=== PATIENT | male | born 1940 | race Caucasian/White ===

== ENCOUNTER 2019-09-17 14:53 | Emergency (ER) | payer MEDICARE, BC ==
--- NOTE | 2019-09-17 15:10 | EDM.PDOC ---
ED HPI GENERAL MEDICAL PROBLEM - General Chief Complaint: Laceration Stated Complaint: LACERATION ON THUMB Time Seen by Provider: 09/17/19 15:02 Source of Information: Reports: Patient - History of Present Illness INITIAL COMMENTS - FREE TEXT/NARRATIVE: Iain is a 78 y/o male who comes to the ER with an injury to his left thumb. He was out in his garage cutting strips of wood and he reports one of the pieces came back out of the saw and hit his left thumb. He is able to move the thumb without any problems. - Related Data Allergies Allergy/AdvReac Type Severity Reaction Status Date / Time No Known Drug Allergies Allergy Other Verified 09/17/19 15:05 benazepril HCl AdvReac Mild Cough Verified 09/17/19 15:05 [From Lotensin] prednisone AdvReac Irritabilit Verified 09/17/19 15:05 y Home Meds: Home Meds Cholecalciferol (Vitamin D3) [Vitamin D3] 1 tab PO DAILY 01/15/14 [History] Cyclobenzaprine [Flexeril] 10 mg PO BEDTIME PRN 01/15/14 [History] Gabapentin [Neurontin] 300 mg PO ASDIRECTED 01/15/14 [History] Hydrocodone/Acetaminophen [Hydrocodon-Acetaminoph 7.5-300] 1 tab PO TID PRN [History] Ipratropium/Albuterol Sulfate [Duoneb 0.5 mg-3 mg/3 ml Soln] 1 ampule INH QID PRN 01/15/14 [History] Morphine Sulfate [Morphine Sulfate ER] 30 mg PO TID 01/15/14 [History] Potassium 99 mg PO DAILY 01/15/14 [History] Venlafaxine HCl [Venlafaxine ER] 150 mg PO DAILY 01/15/14 [History] amLODIPine [Norvasc] 10 mg PO DAILY 01/15/14 [History] traZODone 150 mg PO BEDTIME 01/15/14 [History] Albuterol/Ipratropium [Combivent Respimat] 1 puff IH QID 01/24/16 [History] Fluocinolone/Skin Clnsr28 [Synalar Ts 0.01% Kit] 1 applic TOP ASDIRECTED PRN [History] Fluticasone/Salmeterol [Advair Diskus 250-50] 1 puff INH BID 01/24/16 [History] Hydrocortisone Butyrate/Emoll [Locoid 0.1% Lipocream] 1 applic TOP ASDIRECTED PRN 01/24/16 [History] Lactulose [Cephulac] 30 ml PO BID 01/24/16 [History] Losartan Potassium [Cozaar] 100 mg PO DAILY 01/24/16 [History] Sennosides/Docusate Sodium [Hm Stool Softener-Laxative Tab] 100 mg PO BID [History] Venlafaxine [Effexor XR] 75 mg PO DAILY 01/24/16 [History] Acetaminophen [Tylenol] 650 mg PO Q4H PRN #0 tablet 01/25/16 [Rx] NS + KCl 20mEq/L [Normal Saline with 20 mEq KCl] 1 ml IV ASDIRECTED #0 bag 01/24 [Rx] cefTRIAXone [Rocephin] 1 gm IVPUSH Q24H vial 01/25/16 [Rx] Past Medical History Cardiovascular History: Reports: Aneurysm, High Cholesterol, Hypertension Other Cardiovascular History: aneurysm of thoracic aorta Respiratory History: Reports: Asthma, Bronchitis, Recurrent Other Respiratory History: panlobular emphysema, chronic obstructive lung disease, solitary nodule of lung, pneumonia (unknown if recurrent) Gastrointestinal History: Reports: None Genitourinary History: Reports: None Musculoskeletal History: Reports: Other (See Below) Other Musculoskeletal History: chronic pain Other Neuro History: chronic inflammatory demyelinating polyneuritis, impaired cognition Psychiatric History: Reports: Depression - Past Surgical History Cardiovascular Surgical History: Reports: AAA Repair Social & Family History - Family History Family Medical History: Noncontributory ED ROS GENERAL - Review of Systems Review Of Systems: See Below Constitutional: Reports: No Symptoms HEENT: Reports: No Symptoms Respiratory: Reports: No Symptoms Cardiovascular: Reports: No Symptoms Endocrine: Reports: No Symptoms GI/Abdominal: Reports: No Symptoms : Reports: No Symptoms Musculoskeletal: Reports: No Symptoms Skin: Reports: Other (Laceration to left thumb) ED EXAM, SKIN/RASH Exam: See Below Exam Limited By: No Limitations General Appearance: Alert, WD/WN, No Apparent Distress, Other (Elderly male, NAD.) Ears: Hearing Grossly Normal Nose: Normal Inspection, Normal Mucosa Throat/Mouth: Normal Voice Head: Atraumatic, Normocephalic Neck: Normal Inspection Respiratory/Chest: No Respiratory Distress Cardiovascular: Regular Rate, Rhythm GI/Abdominal: Soft, Non-Tender (Male) Exam: Deferred Rectal (Males) Exam: Deferred Back Exam: Other (Deferred) Extremities: Normal Capillary Refill (Note irregular flap type laceration to left distal thumb on the medial aspect, approximately 1cm/1cm/0.3cm, tissue is quite irregular ; a second avulsion type lacreration about 1cm x 1cm is noted on the doral aspect of hte left thumb along the distal phalynx region), Other Neurological: Alert, Oriented, CN II-XII Intact, Normal Cognition, Normal Gait Psychiatric: Normal Affect, Normal Mood Skin: Warm, Dry, Intact, Normal Color, No Rash Location, Skin: Upper Extremity, Left (See description above) Lymphatic: No Adenopathy ED SKIN PROCEDURES - Laceration/Wound Repair Left Medial Distal Digit - 1st (Thumb) Appearance: Irregular, Mildly Contaminated Distal NVT: Neuro & Vascular Intact, No Tendon Injury Anesthetic Type: Local Local Anesthesia - Lidocaine (Xylocaine): 1% with EPI Local Anesthetic Volume: 5cc Skin Prep: Chlorhexidine (Hibiciens), Providone-Iodine (Betadine), Saline, Sterile Drape Exploration/Debridement/Repair: Wound Explored, Minimal Debridement, Wound Margins Revised, Multiple Flaps Aligned Closed with: Sutures Lac/Wound length In cm: 1 (1cm x 1cm x 0.5cm) Suture Size: 3-0 (Ethilon) # of Sutures: 6 Suture Type: Interrupted Sterile Dressing Applied: Provider Tetanus Status Addressed: Yes Complications: No Progress/Comments: Patient was given wound care instructions. He tolerated the procedure well. Course - Vital Signs Text/Narrative:: The patient was seen by the FLOSSER. Xray was obtained of the left thumb to rule out any fx prior to closure of the laceration. Tetanus date unavailable. Xray was reviewed, no fx noted. The laceration was repaired. See Procedure note. TdaP was given. The patient was given discharge instructions and sent home from the ER in stable condition. Last Recorded V/S: Last Vital Signs Temp 36.8 C 09/17/19 14:55 Pulse 74 09/17/19 14:55 Resp 16 09/17/19 14:55 BP 158/95 H 09/17/19 14:55 Pulse Ox 94 L 09/17/19 14:55 - Orders/Labs/Meds Orders: Active Orders 24 hr Category Date Time Status Vaccines to be Administered [RC] PER UNIT ROUTINE Care 09/17/19 15:15 Active Lidocaine 1% w/EPINEPHrine [Xylocaine 1% with Med 09/17/19 15:23 Active EPINEPHrine 1:100,000] 20 ml INFILT ONETIME PRN Medication Orders Lidocaine/Epinephrine (Xylocaine 1% With Epinephrine 1:100,000) 20 ml INFILT ONETIME PRN PRN Reason: Other Last Admin: 09/17/19 15:28 Dose: 20 ml Meds: Medications Generic Name Dose Route Start Last Admin Trade Name Freq PRN Reason Stop Dose Admin Lidocaine/Epinephrine 20 ml 09/17/19 15:23 09/17/19 15:28 Xylocaine 1% With Epinephrine 1:100,000 INFILT 20 ml ONETIME PRN Administration Other Discontinued Medications Generic Name Dose Route Start Last Admin Trade Name Freq PRN Reason Stop Dose Admin Diphtheria/Tetanus/Acell Pertussis 0.5 ml 09/17/19 15:14 09/17/19 15:25 Adacel IM 09/17/19 15:15 0.5 ml .ONCE ONE Administration Lidocaine/Epinephrine 20 ml 09/17/19 15:18 Xylocaine 2% With Epinephrine 1:100,000 INJECT 09/17/19 15:19 ONETIME ONE - Radiology Interpretation Free Text/Narrative:: XR-Left Thumb=no acute fx noted Departure - Departure Time of Disposition: 15:56 Disposition: Home, Self-Care 01 Condition: Good Clinical Impression: Laceration of thumb, Injury, Tetanus toxoid vaccination administered at current visit - Discharge Information *PRESCRIPTION DRUG MONITORING PROGRAM REVIEWED*: Not Applicable *COPY OF PRESCRIPTION DRUG MONITORING REPORT IN PATIENT KI: Not Applicable Instructions: VIS, Tetanus, Diphtheria (Td); Tetanus, Diphtheria, Pertussis ( Tdap) - CDC, Sutures, Florecita, or Adhesive Wound Closure, [id number] Referrals: Jaylen Hood MD [Primary Care Provider] - Forms: ED Department Discharge Additional Instructions: -Use ibuprofen or acetaminophen as needed for pain (Over the counter meds) -Keep the dressing that was placed in the ER on for 24 hours, then remove the dressing and wash the laceration region with soap and water. Dry the area well and apply a small amount of antibiotic ointment and a bandaid or light dressing. Use the antibiotic ointment for the next 2-3 days, then just cleanse the wound with soap and water and you may begin leaving it open to the air and only place a light band when working outside or needing protection to the area. -Return to your PCP Clinic in 8-10 days for suture removal -Watch for signs of infection such as fever, redness, or drainage and report to your PCP if any of these symptoms occur. -Your tetanus immunization was updated at today's ER visit. Sepsis Event Note - Evaluation Sepsis Screening Result: No Definite Risk - Focused Exam Vital Signs: Vital Signs Temp Pulse Resp BP Pulse Ox 09/17/19 14:55 36.8 C 74 16 158/95 H 94 L Date Exam was Performed: 09/17/19 Time Exam was Performed: 15:56 - My Orders Last 24 Hours: My Active Orders 09/17/19 15:15 Vaccines to be Administered [RC] PER UNIT ROUTINE 09/17/19 15:23 Lidocaine 1% w/EPINEPHrine [Xylocaine 1% with EPINEPHrine 1:100,000] 20 ml INFILT ONETIME PRN - Assessment/Plan Last 24 Hours: My Active Orders 09/17/19 15:15 Vaccines to be Administered [RC] PER UNIT ROUTINE 09/17/19 15:23 Lidocaine 1% w/EPINEPHrine [Xylocaine 1% with EPINEPHrine 1:100,000] 20 ml INFILT ONETIME PRN
[2019-09-17] MEDS ORDERED: Diphtheria,Pertussis(Acell),Tetanus Vaccine 0.5 ML Syringe IM ONE (15:14)
[2019-09-17 15:15] VITALS: BP 158/95; PULSE 74
[2019-09-17] MEDS ORDERED: Lidocaine 2% with EPINEPHrine 1:100,000 20 ML MDV INJECT ONE (15:18)
[2019-09-17] MEDS ORDERED: Lidocaine 1% with EPINEPHrine 1:100,000 20 ML MDV INFILT PRN (15:23)
--- NOTE | 2019-09-17 15:46 | CR ---
[id number] RAD/RAD Fingers Left EXAM: RAD Fingers Left CLINICAL DATA: LACERATION COMPARISON: NO PREVIOUS SIMILAR EXAM IS AVAILABLE. FINDINGS: No fracture or dislocation is seen There are tiny radiopaque foreign bodies in the soft tissues of the thenar eminence There are degenerative changes of the left wrist. IMPRESSION: NO FRACTURE OR DISLOCATION TINY RADIOPAQUE FOREIGN BODIES IN THE SOFT TISSUES OF THE THENAR REGION Zak Talbot MD 09/17/19 2022 Thank you for allowing us to participate in the care of your patient.
== END 2019-09-17 15:57 | disposition home or self-care (01) ==
LOC: VM.ED 14:53
DX: S61.012A Laceration without foreign body of left thumb without damage to nail, initial encounter (principal); Z23 Encounter for immunization; W27.0XXA Contact with workbench tool, initial encounter; Z88.0 Allergy status to penicillin
CPT/HCPCS: 12001; 73140-FA; 90471; 90715; 99283-25; 99283-GF

== ENCOUNTER 2020-09-04 08:18 | Day surgery (SDC) | payer MEDICARE, BC ==
[~2020-09-04 08:18] MED LIST: Lactated Ringers 1,000 ML IV SCH
[2020-09-04] MEDS ORDERED: Propofol 200 MG/20 ML SDV ONE ×5 (09:44→12:10)
[2020-09-04] MEDS ORDERED: Lactated Ringers 1,000 ML ONE (11:22)
[2020-09-04 12:05] VITALS: BP 175/85; PULSE 60
--- NOTE | 2020-09-05 09:39 | OR ---
DATE OF SURGERY: 09/04/2020 REFERRING PROVIDER: Carol Persaud MD PRE-OPERATIVE DIAGNOSES: 1. Positive FIT stool card. 2. History of diverticulosis. The patient states his bowel movements alternate between constipation and diarrhea chronically. POST-OPERATIVE DIAGNOSES: 1. Mild right-sided colitis with superficial ulcerations. Cold biopsy x4 bites taken. This was limited to the right colon. 2. 8 mm pedunculated polyp at 120 cm, removed using hot snare. 3. Long tortuous colon. 4. Moderate diverticulosis. PROCEDURE: Colonoscopy with polypectomy x1 using hot snare. Cold biopsy x1 site (the right colon). SURGEON: Keshav Martin M.D. ANESTHESIA: Monitored anesthesia care. BOWEL PREP: Poor. Did require significant amount of irrigation and suctioning and visualization was affected. Iain is an 79-year-old male, who was brought to the endoscopy suite after discussing risks and benefits of the procedure. Informed consent was obtained for conscious sedation and colonoscopy with or without biopsy and/or polypectomy. We also discussed possibility of missed lesions. Pre-procedure exam was unremarkable. IV, oxygen, and monitors were placed. The patient was placed in the left lateral decubitus position. Sedation was administered and a digital rectal exam was performed and unremarkable. Colonoscope was passed into the rectum and slowly advanced all the way to the cecum. The patient did have a long tortuous colon and required abdominal pressure and multiple scope maneuvers to obtain cecal intubation. Cecum was viewed and photographed. The colonoscope was slowly withdrawn and the mucosa was closed observed in a direct circumferential manner. The ascending colon was remarkable for some right-sided colitis with some superficial linear ulcerations. Cold biopsy x4 bites taken. There was an 8 mm pedunculated polyp at 120 cm, removed using hot snare. The transverse colon was unremarkable. The descending and sigmoid colon did reveal moderate diverticulosis. Retroflexion was performed and rectal mucosa was unremarkable. Scope was removed. The patient tolerated the procedure well. The patient was monitored until that baseline status. Discharge instructions were reviewed and the patient was discharged in good condition. COMPLICATIONS: None. TOTAL TIME: 67 minutes. ESTIMATED BLOOD LOSS: About 1 mL. RECOMMENDATIONS/FOLLOW-UP: We will await results of path report to determine ideal followup interval. I would like to kindly thank Dr. Persaud for this referral. DMB: 09/04/2020 15:18:42 MODL: 09/04/2020 21:56:59 /[id number]
== END 2020-09-04 12:30 | disposition home or self-care (01) ==
LOC: VM.SDS 08:18
PROVIDERS: ATTEND Family Medicine
DX: D12.6 Benign neoplasm of colon, unspecified (principal); K51.80 Other ulcerative colitis without complications; K57.30 Diverticulosis of large intestine without perforation or abscess without bleeding; K63.89 Other specified diseases of intestine; Z01.812 Encounter for preprocedural laboratory examination; Z20.822 Contact with and (suspected) exposure to COVID-19; E78.00 Pure hypercholesterolemia, unspecified; I12.9 Hypertensive chronic kidney disease with stage 1 through stage 4 chronic kidney disease, or unspecified chronic kidney disease; N18.31 Chronic kidney disease, stage 3a; I71.4 Abdominal aortic aneurysm, without rupture; G47.33 Obstructive sleep apnea (adult) (pediatric); J43.1 Panlobular emphysema; F33.0 Major depressive disorder, recurrent, mild; G61.81 Chronic inflammatory demyelinating polyneuritis; M25.561 Pain in right knee; E66.9 Obesity, unspecified; Z68.30 Body mass index [BMI] 30.0-30.9, adult; G89.29 Other chronic pain; Z79.899 Other long term (current) drug therapy; Z88.8 Allergy status to other drugs, medicaments and biological substances; Z87.891 Personal history of nicotine dependence; Z98.890 Other specified postprocedural states
CPT/HCPCS: 00812; 88305; J2704; J7120; U0002

== ENCOUNTER 2022-01-06 15:08 | Inpatient (IN) | payer MEDICARE, BC ==
[2022-01-06] MEDS ORDERED: Sodium Chloride 0.9% 10 ML Syringe FLUSH PRN (16:01)
[2022-01-06] MEDS ORDERED: Ondansetron 4 MG Tab.DIS PO PRN (16:01)
[2022-01-06] MEDS ORDERED: Sodium Chloride 0.9% 1,000 ML IV SCH (16:15)
[2022-01-06] MEDS ORDERED: Nitroglycerin 0.4 MG Tab.SL SL PRN (16:41)
[2022-01-06] MEDS ORDERED: Albuterol/Ipratropium 3.0-0.5 MG/3 ML Neb Soln NEB PRN (16:41)
[2022-01-06] MEDS ORDERED: Albuterol HFA 18 Gm Inhaler INH PRN (16:41)
[2022-01-06] MEDS: Acetaminophen 325 MG Tab PO PRN (17:54)
[2022-01-06] MEDS: cefTRIAXone 2 GM Vial IVPUSH SCH (17:54)
[2022-01-06] MEDS ORDERED: Acetaminophen/HYDROcodone 325-5 MG Tab PO PRN (18:00)
[2022-01-06] MEDS: tiZANidine 4 MG Tab PO SCH ×2 (18:05→20:08)
[2022-01-06] MEDS: Albuterol/Ipratropium 3.0-0.5 MG/3 ML Neb Soln INH SCH (19:57)
[2022-01-06] MEDS: Sodium Chloride 0.9% 1,000 ML IV SCH (19:58)
[2022-01-06] MEDS: Lactulose Soln 10 GM/15 ML 30 ML UD Cup PO SCH (20:08)
[2022-01-06] MEDS: Docusate Sodium 100 MG Cap PO SCH (20:08)
[2022-01-06] MEDS: traZODone 50 MG Tab PO SCH (20:09)
[2022-01-06] MEDS: Gabapentin 300 MG Cap PO SCH (20:09)
[2022-01-06] MEDS: Apixaban 2.5 MG Tab PO SCH (20:10)
[2022-01-06] MEDS: Remove Patch- LIDOCAINE PATCH TRDERM SCH (20:11)
[2022-01-07] MEDS: Albuterol/Ipratropium 3.0-0.5 MG/3 ML Neb Soln INH SCH ×4 (01:10→18:13)
[2022-01-07] MEDS: Sodium Chloride 0.9% 1,000 ML IV SCH ×3 (02:57→17:32)
[2022-01-07 07:46] LABS: ANION GAP 13.3 mmol/L (5-15)
[2022-01-07] MEDS ORDERED: Non-Formulary Medication 1 Each (Potassium Gluconate [Potassium Gluconate] 99 MG Tablet) PO SCH (09:00)
[2022-01-07] MEDS: Lactulose Soln 10 GM/15 ML 30 ML UD Cup PO SCH ×2 (09:10→19:59)
[2022-01-07] MEDS: Venlafaxine 75 MG Cap.ER PO SCH (09:11)
[2022-01-07] MEDS: Gabapentin 300 MG Cap PO SCH ×3 (09:11→20:00)
[2022-01-07] MEDS: Tamsulosin 0.4 MG Cap.ER PO SCH (09:12)
[2022-01-07] MEDS: Docusate Sodium 100 MG Cap PO SCH ×2 (09:12→19:59)
[2022-01-07] MEDS: Aspirin 81 MG Tab.EC PO SCH (09:13)
[2022-01-07] MEDS: Cholecalciferol (Vitamin D3) 25 MCG Tab PO SCH (09:13)
[2022-01-07] MEDS: Apixaban 2.5 MG Tab PO SCH ×2 (09:15→20:00)
[2022-01-07] MEDS: Venlafaxine 150 MG Cap.ER PO SCH (09:15)
[2022-01-07] MEDS: amLODIPine 5 MG Tab PO SCH (09:20)
[2022-01-07] MEDS: cefTRIAXone 2 GM Vial IVPUSH SCH (09:26)
[2022-01-07] MEDS: Metoprolol Succinate 25 MG Tab.ER PO SCH (09:27)
[2022-01-07] MEDS: Lidocaine 4% 1 each Patch TOP SCH (12:47)
[2022-01-07] MEDS: Acetaminophen 325 MG Tab PO PRN (17:33)
[2022-01-07] MEDS: tiZANidine 4 MG Tab PO SCH ×2 (17:33→20:00)
[2022-01-07] MEDS: traZODone 50 MG Tab PO SCH (19:59)
[2022-01-07] MEDS: Remove Patch- LIDOCAINE PATCH TRDERM SCH (20:00)
[2022-01-08] MEDS: Albuterol/Ipratropium 3.0-0.5 MG/3 ML Neb Soln INH SCH ×4 (01:32→18:30)
[2022-01-08] MEDS: Sodium Chloride 0.9% 1,000 ML IV SCH (01:33)
[2022-01-08 07:35] LABS: ANION GAP 14.6 mmol/L (5-15)
[2022-01-08] MEDS: Lidocaine 4% 1 each Patch TOP SCH (09:32)
[2022-01-08] MEDS: Venlafaxine 75 MG Cap.ER PO SCH (09:34)
[2022-01-08] MEDS: Docusate Sodium 100 MG Cap PO SCH ×2 (09:34→20:29)
[2022-01-08] MEDS: Aspirin 81 MG Tab.EC PO SCH (09:34)
[2022-01-08] MEDS: Gabapentin 300 MG Cap PO SCH ×3 (09:34→20:28)
[2022-01-08] MEDS: Metoprolol Succinate 25 MG Tab.ER PO SCH (09:34)
[2022-01-08] MEDS: Venlafaxine 150 MG Cap.ER PO SCH (09:35)
[2022-01-08] MEDS: amLODIPine 5 MG Tab PO SCH (09:35)
[2022-01-08] MEDS: Tamsulosin 0.4 MG Cap.ER PO SCH (09:35)
[2022-01-08] MEDS: Cholecalciferol (Vitamin D3) 25 MCG Tab PO SCH (09:35)
[2022-01-08] MEDS: Apixaban 2.5 MG Tab PO SCH ×2 (09:36→20:29)
[2022-01-08] MEDS: Lactulose Soln 10 GM/15 ML 30 ML UD Cup PO SCH ×2 (09:36→20:28)
[2022-01-08] MEDS: cefTRIAXone 2 GM Vial IVPUSH SCH (09:40)
[2022-01-08] MEDS: Losartan 50 MG Tab PO SCH (09:40)
[2022-01-08] MEDS: Acetaminophen 325 MG Tab PO PRN (14:20)
[2022-01-08] MEDS ORDERED: Labetalol 20 MG/4 ML Syringe IVPUSH ONE ×3 (14:45→17:04)
[2022-01-08] MEDS ORDERED: Furosemide 20 MG Tab PO ONE (17:00)
[2022-01-08] MEDS: tiZANidine 4 MG Tab PO SCH ×2 (18:26→20:29)
[2022-01-08] MEDS ORDERED: Morphine 15 MG Tab.ER PO SCH (18:45)
[2022-01-08] MEDS: Morphine 15 MG Tab.ER PO SCH ×2 (19:03→20:28)
[2022-01-08] MEDS: traZODone 50 MG Tab PO SCH (20:29)
[2022-01-08] MEDS: Remove Patch- LIDOCAINE PATCH TRDERM SCH (20:30)
[2022-01-09] MEDS: Albuterol/Ipratropium 3.0-0.5 MG/3 ML Neb Soln INH SCH ×2 (00:07→08:12)
[2022-01-09] MEDS: Lidocaine 4% 1 each Patch TOP SCH (08:12)
[2022-01-09] MEDS: Aspirin 81 MG Tab.EC PO SCH (08:13)
[2022-01-09] MEDS: Tamsulosin 0.4 MG Cap.ER PO SCH (08:13)
[2022-01-09] MEDS: Docusate Sodium 100 MG Cap PO SCH (08:13)
[2022-01-09] MEDS: Losartan 50 MG Tab PO SCH (08:13)
[2022-01-09] MEDS: amLODIPine 5 MG Tab PO SCH (08:13)
[2022-01-09] MEDS: Cholecalciferol (Vitamin D3) 25 MCG Tab PO SCH (08:13)
[2022-01-09] MEDS: Gabapentin 300 MG Cap PO SCH ×2 (08:14→13:08)
[2022-01-09] MEDS: Metoprolol Succinate 25 MG Tab.ER PO SCH (08:14)
[2022-01-09] MEDS: Morphine 15 MG Tab.ER PO SCH (08:15)
[2022-01-09] MEDS: Venlafaxine 75 MG Cap.ER PO SCH (08:15)
[2022-01-09] MEDS: Apixaban 2.5 MG Tab PO SCH (08:15)
[2022-01-09] MEDS: Venlafaxine 150 MG Cap.ER PO SCH (08:15)
[2022-01-09] MEDS: Lactulose Soln 10 GM/15 ML 30 ML UD Cup PO SCH (08:16)
[2022-01-09 09:34] LABS: ANION GAP 14.8 mmol/L (5-15)
[2022-01-09 10:18] VITALS: BP 158/88; PULSE 80
[2022-01-09] MEDS: cefTRIAXone 2 GM Vial IVPUSH SCH (10:32)
== END 2022-01-09 11:40 | disposition home or self-care (01) | DRG 683 ==
LOC: VM.MS 15:21
PROVIDERS: ADMIT Family Medicine; ATTEND Family Medicine
DX: N17.9 Acute kidney failure, unspecified (principal); N39.0 Urinary tract infection, site not specified; R33.9 Retention of urine, unspecified; R97.20 Elevated prostate specific antigen [PSA]; B96.20 Unspecified Escherichia coli [E. coli] as the cause of diseases classified elsewhere; B96.1 Klebsiella pneumoniae [K. pneumoniae] as the cause of diseases classified elsewhere; I12.9 Hypertensive chronic kidney disease with stage 1 through stage 4 chronic kidney disease, or unspecified chronic kidney disease; N18.31 Chronic kidney disease, stage 3a; Z66 Do not resuscitate; I73.9 Peripheral vascular disease, unspecified; I48.91 Unspecified atrial fibrillation; I25.10 Atherosclerotic heart disease of native coronary artery without angina pectoris; J43.9 Emphysema, unspecified; G47.33 Obstructive sleep apnea (adult) (pediatric); E78.5 Hyperlipidemia, unspecified; F32.A Depression, unspecified; E66.9 Obesity, unspecified; K59.09 Other constipation; G89.29 Other chronic pain; Z68.30 Body mass index [BMI] 30.0-30.9, adult; Z79.899 Other long term (current) drug therapy; Z79.01 Long term (current) use of anticoagulants; Z79.82 Long term (current) use of aspirin; Z79.52 Long term (current) use of systemic steroids; Z79.1 Long term (current) use of non-steroidal anti-inflammatories (NSAID); Z88.8 Allergy status to other drugs, medicaments and biological substances; Z87.01 Personal history of pneumonia (recurrent); Z87.19 Personal history of other diseases of the digestive system; Z98.42 Cataract extraction status, left eye; Z98.41 Cataract extraction status, right eye; Z98.890 Other specified postprocedural states; Z90.89 Acquired absence of other organs; Z98.52 Vasectomy status; Z87.891 Personal history of nicotine dependence
CPT/HCPCS: 36415; 51702; 80048; 80053; 85025; 94640; 94760; 97110-GP; 97116-GP; 97162-GP; A9270-GY; J0696; J3490; J7030; J7620-GY

== ENCOUNTER 2022-10-11 10:10 | Inpatient (IN) | payer MEDICARE, BC ==
[2022-10-11] MEDS ORDERED: Sodium Chloride 0.9% 1,000 ML IV ONE (10:19)
[2022-10-11] MEDS ORDERED: Sodium Chloride 0.9% 10 ML Syringe FLUSH PRN (10:19)
[2022-10-11] MEDS ORDERED: cefTRIAXone 1 GM in Sodium Chloride 0.9% 100 ML IV ONE (10:19)
[2022-10-11] MEDS ORDERED: Acetaminophen 325 MG Tab PO ONE (10:32)
[2022-10-11 10:53] LABS: BASOPHILS PERCENT AUTO 0.1 % (0.2-1.2); EOSINOPHILS ABSOLUTE AUTO 0.4 x10^3/uL (0.0-0.5); EOSINOPHILS PERCENT AUTO 2.9 % (0.0-4.0); HEMATOCRIT 34.5 % (40.0-52.0); HEMOGLOBIN 11.4 g/dL (14.0-18.0); IMMATURE GRAN ABSOLUTE AUTO 0.05 x10^3/uL (0.00-0.07); LYMPHOCYTES ABSOLUTE AUTO 1.2 x10^3/uL (1.0-4.8); LYMPHOCYTES PERCENT AUTO 7.8 % (25.0-50.0); MEAN CORPUSCULAR HEMOGLOBIN 30.4 pg (26.0-32.0); MONOCYTES PERCENT AUTO 6.5 % (2.0-11.0); NEUTROPHILS ABSOLUTE AUTO 12.1 x10^3/uL (1.8-7.7); NEUTROPHILS PERCENT AUTO 82.4 % (50.0-80.0); PLATELET COUNT,PLT 164 x10^3/uL (130-400); RED BLOOD CELL COUNT 3.75 x10^6/uL (4.5-6.0); WHITE BLOOD CELL COUNT,WBC 14.7 x10^3/uL (4.0-10.0)
[2022-10-11] MEDS ORDERED: cefTRIAXone 1 GM Vial IVPUSH ONE (10:56)
[2022-10-11 11:17] LABS: LACTIC ACID 0.7 mmol/L (0.4-2.0)
[2022-10-11 11:27] LABS: A/G RATIO 0.73; ALANINE AMINOTRANSFERASE,ALT 16 U/L (16-63); ALBUMIN 2.9 g/dL (3.4-5.0); ALKALINE PHOSPHATASE 144 U/L (46-116); ASPARTATE AMNIOTRANSFERASE,AST 11 U/L (15-37); BILIRUBIN TOTAL 0.6 mg/dL (0.2-1.0); BLOOD UREA NITROGEN,BUN 35 mg/dL (7-18); C-REACTIVE PROTEIN 7.9 mg/dL (<=0.9); CALCIUM 8.4 mg/dL (8.5-10.1); CARBON DIOXIDE,CO2 28 mmol/L (21-32); CHLORIDE,CL 105 mmol/L (98-107); GLUCOSE RANDOM 115 mg/dL (70-99); PROTEIN TOTAL,TP 6.9 g/dL (6.4-8.2); SODIUM,NA 142 mmol/L (136-145)
[2022-10-11 11:28] LABS: ESTIMATED GFR 33 mL/min (>=60)
[2022-10-11 11:29] LABS: BILIRUBIN,URINE NEGATIVE (NEGATIVE); COLOR,URINE YELLOW (YELLOW); GLUCOSE,URINE NEGATIVE (NEGATIVE); KETONES,URINE NEGATIVE (NEGATIVE); LEUKOCYTE ESTERASE,URINE MODERATE (NEGATIVE); NITRITE,URINE POSITIVE (NEGATIVE); OCCULT BLOOD,URINE TRACE-INTACT (NEGATIVE); PH,URINE 6.5 (5.0-8.0); PROTEIN,URINE 30 mg/dL (NEGATIVE); UROBILINOGEN,URINE 0.2 EU/dL (0.2)
[2022-10-11 11:33] LABS: CORONAVIRUS COVID-19 NAA NEGATIVE (NEGATIVE); INFLUENZA A NAA NEGATIVE (NEGATIVE); INFLUENZA B NAA NEGATIVE (NEGATIVE); RESPIRATORY SYNCYTIAL VIR NAA NEGATIVE (NEGATIVE)
[2022-10-11 11:37] LABS: APPEARANCE,URINE CLOUDY (CLEAR)
[2022-10-11 11:38] LABS: BACTERIA,URINE MODERATE /HPF (NOT SEEN); MUCUS,URINE RARE /LPF (NOT SEEN); WBC,URINE 40-50 /HPF (NOT SEEN)
[2022-10-11] MEDS ORDERED: Acetaminophen 325 MG Tab PO PRN (12:23)
[2022-10-11] MEDS ORDERED: Acetaminophen 500 MG Tab PO PRN (12:45)
[2022-10-11] MEDS ORDERED: hydrOXYzine HCl 25 MG Tab PO PRN (12:45)
[2022-10-11] MEDS ORDERED: Albuterol/Ipratropium 3.0-0.5 MG/3 ML Neb Soln NEB PRN (12:45)
[2022-10-11] MEDS ORDERED: Albuterol HFA 18 Gm Inhaler INH PRN (12:45)
[2022-10-11] MEDS ORDERED: Hydrocortisone 1% Crm 30 GM Tube TOP PRN (13:59)
[2022-10-11] MEDS: Mupirocin Oint 22 GM Tube TOP SCH ×2 (14:21→20:17)
[2022-10-11] MEDS: Morphine 15 MG Tab.ER PO SCH ×2 (14:21→20:23)
[2022-10-11] MEDS: Albuterol/Ipratropium 3.0-0.5 MG/3 ML Neb Soln NEB SCH ×2 (15:16→20:23)
[2022-10-11] MEDS: Sodium Chloride 0.9% 1,000 ML IV SCH (16:20)
[2022-10-11] MEDS ORDERED: VANCOmycin 2 GM/400 ML 2 GM in Premix Bag 1 BAG IV SCH (17:30)
[2022-10-11] MEDS ORDERED: Acetaminophen/HYDROcodone 325-5 MG Tab PO PRN (18:00)
[2022-10-11] MEDS: tiZANidine 4 MG Tab PO SCH ×2 (18:43→20:24)
[2022-10-11] MEDS: Carvedilol 6.25 MG Tab PO SCH (18:43)
[2022-10-11] MEDS: Piperacillin/Tazobactam 3.375 GM in Sodium Chloride 0.9% 100 ML IV SCH (18:44)
[2022-10-11] MEDS: Lactulose Soln 10 GM/15 ML 30 ML UD Cup PO SCH (20:23)
[2022-10-11] MEDS: Docusate Sodium 100 MG Cap PO SCH (20:23)
[2022-10-11] MEDS: Gabapentin 300 MG Cap PO SCH (20:24)
[2022-10-11] MEDS: Apixaban 2.5 MG Tab PO SCH (20:24)
[2022-10-11] MEDS: MICONAZOLE 2% TOP SCH (20:24)
[2022-10-12] MEDS: Sodium Chloride 0.9% 1,000 ML IV SCH ×2 (01:46→17:17)
[2022-10-12] MEDS: Piperacillin/Tazobactam 3.375 GM in Sodium Chloride 0.9% 100 ML IV SCH ×2 (01:46→09:27)
[2022-10-12 07:00] LABS: BASOPHILS PERCENT AUTO 0.2 % (0.2-1.2); EOSINOPHILS ABSOLUTE AUTO 0.6 x10^3/uL (0.0-0.5); EOSINOPHILS PERCENT AUTO 4.3 % (0.0-4.0); HEMATOCRIT 31.5 % (40.0-52.0); HEMOGLOBIN 10.2 g/dL (14.0-18.0); IMMATURE GRAN ABSOLUTE AUTO 0.05 x10^3/uL (0.00-0.07); LYMPHOCYTES ABSOLUTE AUTO 1.5 x10^3/uL (1.0-4.8); LYMPHOCYTES PERCENT AUTO 10.8 % (25.0-50.0); MEAN CORPUSCULAR HEMOGLOBIN 30.4 pg (26.0-32.0); MEAN CORPUSCULAR HGB CONC 32.4 g/dL (32.0-36.0); MEAN CORPUSCULAR VOLUME 93.8 fL (78.0-93.0); MONOCYTES ABSOLUTE AUTO 0.9 x10^3/uL (0.0-0.8); MONOCYTES PERCENT AUTO 6.4 % (2.0-11.0); NEUTROPHILS ABSOLUTE AUTO 11.1 x10^3/uL (1.8-7.7); NEUTROPHILS PERCENT AUTO 77.9 % (50.0-80.0); PLATELET COUNT,PLT 143 x10^3/uL (130-400); RED BLOOD CELL COUNT 3.36 x10^6/uL (4.5-6.0); WHITE BLOOD CELL COUNT,WBC 14.2 x10^3/uL (4.0-10.0)
[2022-10-12] MEDS: Albuterol/Ipratropium 3.0-0.5 MG/3 ML Neb Soln NEB SCH ×4 (07:12→20:07)
[2022-10-12 07:18] LABS: A/G RATIO 0.6; ALBUMIN 2.4 g/dL (3.4-5.0); CALCIUM 8.3 mg/dL (8.5-10.1); CREATININE 2.2 mg/dL (0.70-1.30); EST CRCL DRUG DOSING (CG) 27.57 mL/min; POTASSIUM,K 4.2 mmol/L (3.5-5.1); PROTEIN TOTAL,TP 6.4 g/dL (6.4-8.2)
[2022-10-12 07:21] LABS: ANION GAP 14.2 mmol/L (5-15)
[2022-10-12] MEDS: POTASSIUM GLUCONATE PO SCH (08:58)
[2022-10-12] MEDS: Carvedilol 6.25 MG Tab PO SCH ×2 (08:59→17:25)
[2022-10-12] MEDS: Mupirocin Oint 22 GM Tube TOP SCH ×3 (08:59→20:07)
[2022-10-12] MEDS: Docusate Sodium 100 MG Cap PO SCH ×2 (09:00→20:07)
[2022-10-12] MEDS: amLODIPine 5 MG Tab PO SCH (09:00)
[2022-10-12] MEDS: Aspirin 81 MG Tab.EC PO SCH (09:00)
[2022-10-12] MEDS ORDERED: cefTRIAXone 1 GM Vial IVPUSH SCH (09:00)
[2022-10-12] MEDS: Gabapentin 300 MG Cap PO SCH ×3 (09:00→20:08)
[2022-10-12] MEDS: Apixaban 2.5 MG Tab PO SCH ×2 (09:00→20:07)
[2022-10-12] MEDS: Furosemide 20 MG Tab PO SCH (09:00)
[2022-10-12] MEDS: MICONAZOLE 2% TOP SCH ×2 (09:01→20:07)
[2022-10-12] MEDS: Losartan 50 MG Tab PO SCH (09:01)
[2022-10-12] MEDS: Lactulose Soln 10 GM/15 ML 30 ML UD Cup PO SCH ×2 (09:01→20:07)
[2022-10-12] MEDS: Cholecalciferol (Vitamin D3) 25 MCG Tab PO SCH (09:02)
[2022-10-12] MEDS: Ezetimibe 10 MG Tab PO SCH (09:02)
[2022-10-12] MEDS: Morphine 15 MG Tab.ER PO SCH ×3 (09:02→20:08)
[2022-10-12] MEDS: Tamsulosin 0.4 MG Cap.ER PO SCH (09:02)
[2022-10-12] MEDS: Venlafaxine 150 MG Cap.ER PO SCH (09:03)
[2022-10-12] MEDS: Venlafaxine 75 MG Cap.ER PO SCH (09:03)
[2022-10-12] MEDS: Tiotropium BR/Olodaterol HCL 4 GM Inhalation Spray 2.5mcg/1 dose; 10 doses INH SCH (09:04)
[2022-10-12] MEDS: Lidocaine 4% 1 each Patch TOP SCH (09:05)
[2022-10-12] MEDS: Nitroglycerin 0.4 MG Tab.SL SL PRN ×2 (12:41→13:25)
[2022-10-12] MEDS: tiZANidine 4 MG Tab PO SCH ×2 (17:25→20:08)
[2022-10-12] MEDS: cefTRIAXone 1 GM Vial IVPUSH SCH (20:06)
[2022-10-13] MEDS: Sodium Chloride 0.9% 1,000 ML IV SCH (05:22)
[2022-10-13] MEDS: Albuterol/Ipratropium 3.0-0.5 MG/3 ML Neb Soln NEB SCH ×4 (06:04→21:54)
[2022-10-13 08:21] LABS: BASOPHILS PERCENT AUTO 0.2 % (0.2-1.2); EOSINOPHILS ABSOLUTE AUTO 0.7 x10^3/uL (0.0-0.5); HEMATOCRIT 35.8 % (40.0-52.0); HEMOGLOBIN 11.6 g/dL (14.0-18.0); IMMATURE GRAN ABSOLUTE AUTO 0.03 x10^3/uL (0.00-0.07); LYMPHOCYTES ABSOLUTE AUTO 1.5 x10^3/uL (1.0-4.8); LYMPHOCYTES PERCENT AUTO 11.1 % (25.0-50.0); MEAN CORPUSCULAR HEMOGLOBIN 30.3 pg (26.0-32.0); MEAN CORPUSCULAR HGB CONC 32.4 g/dL (32.0-36.0); MEAN CORPUSCULAR VOLUME 93.5 fL (78.0-93.0); MONOCYTES ABSOLUTE AUTO 1.1 x10^3/uL (0.0-0.8); NEUTROPHILS ABSOLUTE AUTO 9.9 x10^3/uL (1.8-7.7); NEUTROPHILS PERCENT AUTO 75.5 % (50.0-80.0); PLATELET COUNT,PLT 172 x10^3/uL (130-400); RED BLOOD CELL COUNT 3.83 x10^6/uL (4.5-6.0); WHITE BLOOD CELL COUNT,WBC 13.1 x10^3/uL (4.0-10.0)
[2022-10-13] MEDS: Tiotropium BR/Olodaterol HCL 4 GM Inhalation Spray 2.5mcg/1 dose; 10 doses INH SCH (08:34)
[2022-10-13 08:35] LABS: CALCIUM 8.7 mg/dL (8.5-10.1); EST CRCL DRUG DOSING (CG) 30.33 mL/min; POTASSIUM,K 4.1 mmol/L (3.5-5.1)
[2022-10-13] MEDS: Lidocaine 4% 1 each Patch TOP SCH (08:36)
[2022-10-13] MEDS: Aspirin 81 MG Tab.EC PO SCH (08:37)
[2022-10-13] MEDS: Cholecalciferol (Vitamin D3) 25 MCG Tab PO SCH (08:37)
[2022-10-13] MEDS: Gabapentin 300 MG Cap PO SCH ×3 (08:37→21:53)
[2022-10-13] MEDS: Venlafaxine 150 MG Cap.ER PO SCH (08:37)
[2022-10-13] MEDS: Ezetimibe 10 MG Tab PO SCH (08:37)
[2022-10-13] MEDS: Venlafaxine 75 MG Cap.ER PO SCH (08:37)
[2022-10-13] MEDS: Docusate Sodium 100 MG Cap PO SCH ×2 (08:37→21:53)
[2022-10-13] MEDS: Furosemide 20 MG Tab PO SCH (08:37)
[2022-10-13] MEDS: Tamsulosin 0.4 MG Cap.ER PO SCH (08:37)
[2022-10-13] MEDS: POTASSIUM GLUCONATE PO SCH (08:38)
[2022-10-13] MEDS: Apixaban 2.5 MG Tab PO SCH ×2 (08:38→21:53)
[2022-10-13] MEDS: Morphine 15 MG Tab.ER PO SCH ×3 (08:38→21:52)
[2022-10-13] MEDS: Lactulose Soln 10 GM/15 ML 30 ML UD Cup PO SCH ×2 (08:39→21:54)
[2022-10-13 08:41] LABS: ANION GAP 13.1 mmol/L (5-15)
[2022-10-13] MEDS: Losartan 50 MG Tab PO SCH (08:43)
[2022-10-13] MEDS: Carvedilol 6.25 MG Tab PO SCH ×3 (08:43→18:39)
[2022-10-13] MEDS: amLODIPine 5 MG Tab PO SCH (08:44)
[2022-10-13] MEDS: Mupirocin Oint 22 GM Tube TOP SCH ×3 (08:45→21:55)
[2022-10-13] MEDS: MICONAZOLE 2% TOP SCH ×2 (08:45→22:32)
[2022-10-13] MEDS: tiZANidine 4 MG Tab PO SCH ×3 (18:35→21:54)
[2022-10-13] MEDS: cefTRIAXone 1 GM Vial IVPUSH SCH (21:52)
[2022-10-14] MEDS: Albuterol/Ipratropium 3.0-0.5 MG/3 ML Neb Soln NEB SCH ×4 (06:44→20:25)
[2022-10-14 07:11] LABS: BASOPHILS PERCENT AUTO 0.4 % (0.2-1.2); EOSINOPHILS ABSOLUTE AUTO 0.7 x10^3/uL (0.0-0.5); EOSINOPHILS PERCENT AUTO 6.4 % (0.0-4.0); HEMOGLOBIN 9.9 g/dL (14.0-18.0); IMMATURE GRAN ABSOLUTE AUTO 0.03 x10^3/uL (0.00-0.07); LYMPHOCYTES ABSOLUTE AUTO 1.7 x10^3/uL (1.0-4.8); MEAN CORPUSCULAR HEMOGLOBIN 30.7 pg (26.0-32.0); MEAN CORPUSCULAR VOLUME 92.9 fL (78.0-93.0); MONOCYTES PERCENT AUTO 9.8 % (2.0-11.0); NEUTROPHILS PERCENT AUTO 67.1 % (50.0-80.0); PLATELET COUNT,PLT 159 x10^3/uL (130-400); RED BLOOD CELL COUNT 3.23 x10^6/uL (4.5-6.0); WHITE BLOOD CELL COUNT,WBC 10.4 x10^3/uL (4.0-10.0)
[2022-10-14 07:29] LABS: CALCIUM 8.4 mg/dL (8.5-10.1); CREATININE 2.2 mg/dL (0.70-1.30); EST CRCL DRUG DOSING (CG) 27.57 mL/min; POTASSIUM,K 4.2 mmol/L (3.5-5.1)
[2022-10-14 07:31] LABS: ANION GAP 14.2 mmol/L (5-15)
[2022-10-14] MEDS: Lactulose Soln 10 GM/15 ML 30 ML UD Cup PO SCH ×2 (09:18→20:25)
[2022-10-14] MEDS: Tamsulosin 0.4 MG Cap.ER PO SCH (09:20)
[2022-10-14] MEDS: Ezetimibe 10 MG Tab PO SCH (09:21)
[2022-10-14] MEDS: Aspirin 81 MG Tab.EC PO SCH (09:21)
[2022-10-14] MEDS: Apixaban 2.5 MG Tab PO SCH ×2 (09:21→20:24)
[2022-10-14] MEDS: Venlafaxine 150 MG Cap.ER PO SCH (09:21)
[2022-10-14] MEDS: Carvedilol 6.25 MG Tab PO SCH ×2 (09:21→18:45)
[2022-10-14] MEDS: Losartan 50 MG Tab PO SCH (09:21)
[2022-10-14] MEDS: Cholecalciferol (Vitamin D3) 25 MCG Tab PO SCH (09:22)
[2022-10-14] MEDS: Docusate Sodium 100 MG Cap PO SCH ×2 (09:22→20:24)
[2022-10-14] MEDS: Venlafaxine 75 MG Cap.ER PO SCH (09:22)
[2022-10-14] MEDS: amLODIPine 5 MG Tab PO SCH (09:22)
[2022-10-14] MEDS: Morphine 15 MG Tab.ER PO SCH ×3 (09:23→20:24)
[2022-10-14] MEDS: Gabapentin 300 MG Cap PO SCH ×3 (09:25→20:25)
[2022-10-14] MEDS: Furosemide 40 MG/4 ML VIAL IV SCH (09:33)
[2022-10-14] MEDS: Lidocaine 4% 1 each Patch TOP SCH (10:00)
[2022-10-14] MEDS: MICONAZOLE 2% TOP SCH (11:38)
[2022-10-14] MEDS: Mupirocin Oint 22 GM Tube TOP SCH ×2 (11:38→15:48)
[2022-10-14] MEDS: Tiotropium BR/Olodaterol HCL 4 GM Inhalation Spray 2.5mcg/1 dose; 10 doses INH SCH (11:42)
[2022-10-14] MEDS: POTASSIUM GLUCONATE PO SCH (12:47)
[2022-10-14] MEDS: tiZANidine 4 MG Tab PO SCH ×2 (18:46→20:24)
[2022-10-14] MEDS: cefTRIAXone 1 GM Vial IVPUSH SCH (20:25)
[2022-10-15] MEDS: Mupirocin Oint 22 GM Tube TOP SCH ×3 (01:16→12:44)
[2022-10-15] MEDS: MICONAZOLE 2% TOP SCH ×2 (01:17→11:15)
[2022-10-15] MEDS: Albuterol/Ipratropium 3.0-0.5 MG/3 ML Neb Soln NEB SCH ×2 (06:04→11:29)
[2022-10-15 08:29] LABS: BASOPHILS PERCENT AUTO 0.4 % (0.2-1.2); EOSINOPHILS ABSOLUTE AUTO 0.9 x10^3/uL (0.0-0.5); EOSINOPHILS PERCENT AUTO 9.3 % (0.0-4.0); HEMATOCRIT 31.2 % (40.0-52.0); IMMATURE GRAN ABSOLUTE AUTO 0.02 x10^3/uL (0.00-0.07); LYMPHOCYTES ABSOLUTE AUTO 1.6 x10^3/uL (1.0-4.8); LYMPHOCYTES PERCENT AUTO 16.9 % (25.0-50.0); MEAN CORPUSCULAR HEMOGLOBIN 30.4 pg (26.0-32.0); MEAN CORPUSCULAR HGB CONC 32.1 g/dL (32.0-36.0); MEAN CORPUSCULAR VOLUME 94.8 fL (78.0-93.0); MONOCYTES ABSOLUTE AUTO 0.9 x10^3/uL (0.0-0.8); MONOCYTES PERCENT AUTO 9.8 % (2.0-11.0); NEUTROPHILS ABSOLUTE AUTO 6.1 x10^3/uL (1.8-7.7); NEUTROPHILS PERCENT AUTO 63.4 % (50.0-80.0); PLATELET COUNT,PLT 168 x10^3/uL (130-400); RED BLOOD CELL COUNT 3.29 x10^6/uL (4.5-6.0); WHITE BLOOD CELL COUNT,WBC 9.6 x10^3/uL (4.0-10.0)
[2022-10-15 08:50] LABS: A/G RATIO 0.44; ALBUMIN 2.1 g/dL (3.4-5.0); BILIRUBIN TOTAL 0.2 mg/dL (0.2-1.0); CALCIUM 8.6 mg/dL (8.5-10.1); CREATININE 2.4 mg/dL (0.70-1.30); EST CRCL DRUG DOSING (CG) 25.27 mL/min; POTASSIUM,K 4.2 mmol/L (3.5-5.1); PROTEIN TOTAL,TP 6.9 g/dL (6.4-8.2)
[2022-10-15] MEDS: Carvedilol 6.25 MG Tab PO SCH (08:54)
[2022-10-15] MEDS: Amoxicillin/Clavulanate K 875-125 MG Tab PO SCH ×2 (08:54→09:12)
[2022-10-15] MEDS: Apixaban 2.5 MG Tab PO SCH (08:54)
[2022-10-15] MEDS: Venlafaxine 75 MG Cap.ER PO SCH (08:54)
[2022-10-15] MEDS: Docusate Sodium 100 MG Cap PO SCH (08:54)
[2022-10-15] MEDS: Ezetimibe 10 MG Tab PO SCH (08:55)
[2022-10-15] MEDS: Tamsulosin 0.4 MG Cap.ER PO SCH (08:55)
[2022-10-15] MEDS: Venlafaxine 150 MG Cap.ER PO SCH (08:55)
[2022-10-15] MEDS: Aspirin 81 MG Tab.EC PO SCH (08:55)
[2022-10-15] MEDS: Cholecalciferol (Vitamin D3) 25 MCG Tab PO SCH (08:55)
[2022-10-15] MEDS: amLODIPine 5 MG Tab PO SCH (08:56)
[2022-10-15] MEDS: Losartan 50 MG Tab PO SCH (08:56)
[2022-10-15] MEDS: Gabapentin 300 MG Cap PO SCH ×2 (08:56→12:38)
[2022-10-15] MEDS: Morphine 15 MG Tab.ER PO SCH ×2 (08:56→12:39)
[2022-10-15] MEDS: Lactulose Soln 10 GM/15 ML 30 ML UD Cup PO SCH (08:57)
[2022-10-15 08:59] LABS: ANION GAP 15.2 mmol/L (5-15)
[2022-10-15] MEDS: Tiotropium BR/Olodaterol HCL 4 GM Inhalation Spray 2.5mcg/1 dose; 10 doses INH SCH (08:59)
[2022-10-15] MEDS: Furosemide 40 MG/4 ML VIAL IV SCH (09:11)
[2022-10-15] MEDS: POTASSIUM GLUCONATE PO SCH (09:13)
[2022-10-15 11:08] VITALS: BP 133/62; PULSE 87
[2022-10-15] MEDS: Lidocaine 4% 1 each Patch TOP SCH (11:14)
== END 2022-10-15 13:00 | disposition swing bed (61) | DRG 871 ==
LOC: VM.ED 10:10 → VM.MS 11:57
PROVIDERS: ADMIT Family Medicine; ATTEND Family Medicine
DX: A41.9 Sepsis, unspecified organism (principal); I50.23 Acute on chronic systolic (congestive) heart failure; J18.9 Pneumonia, unspecified organism; N17.9 Acute kidney failure, unspecified; N39.0 Urinary tract infection, site not specified; I11.0 Hypertensive heart disease with heart failure; J44.0 Chronic obstructive pulmonary disease with (acute) lower respiratory infection; I13.0 Hypertensive heart and chronic kidney disease with heart failure and stage 1 through stage 4 chronic kidney disease, or unspecified chronic kidney disease; G61.81 Chronic inflammatory demyelinating polyneuritis; R65.10 Systemic inflammatory response syndrome (SIRS) of non-infectious origin without acute organ dysfunction; R31.9 Hematuria, unspecified; G89.29 Other chronic pain; N31.9 Neuromuscular dysfunction of bladder, unspecified; E78.5 Hyperlipidemia, unspecified; I48.91 Unspecified atrial fibrillation; I25.10 Atherosclerotic heart disease of native coronary artery without angina pectoris; N18.30 Chronic kidney disease, stage 3 unspecified; F32.9 Major depressive disorder, single episode, unspecified; I50.9 Heart failure, unspecified; Z20.822 Contact with and (suspected) exposure to COVID-19; Z66 Do not resuscitate; Z88.8 Allergy status to other drugs, medicaments and biological substances; Z91.041 Radiographic dye allergy status; Z98.890 Other specified postprocedural states; Z98.49 Cataract extraction status, unspecified eye; J44.9 Chronic obstructive pulmonary disease, unspecified; I10 Essential (primary) hypertension; E78.00 Pure hypercholesterolemia, unspecified; Z98.52 Vasectomy status; K59.2 Neurogenic bowel, not elsewhere classified; N31.8 Other neuromuscular dysfunction of bladder; E66.9 Obesity, unspecified; Z79.82 Long term (current) use of aspirin; Z79.899 Other long term (current) drug therapy; Z93.3 Colostomy status; Z87.891 Personal history of nicotine dependence
CPT/HCPCS: 0241U; 36415; 51702; 71045; 80048; 80053; 80202; 81001; 82140; 83605; 83880; 84145; 84484; 85025; 86140; 87040; 87086; 87088; 87186; 93005; 94640; 94760; 96361; 96365; 96366; 96375; 97162; 97530; 99284; 99285; A9270-GY; J0696; J1940; J2543; J3370; J3490; J7030; J7060; J7620-GY

== ENCOUNTER 2022-10-15 11:48 | Inpatient (IN) | payer MEDICARE, BC ==
[2022-10-15] MEDS ORDERED: MICONAZOLE 2% TOP PRN (13:00)
[2022-10-15] MEDS ORDERED: Mupirocin Oint 22 GM Tube TOP PRN (13:00)
[2022-10-15] MEDS ORDERED: Sodium Chloride 0.9% 10 ML Syringe FLUSH PRN (15:38)
[2022-10-15] MEDS ORDERED: Acetaminophen/HYDROcodone 325-5 MG Tab PO PRN (15:39)
[2022-10-15] MEDS ORDERED: Acetaminophen 325 MG Tab PO PRN (15:39)
[2022-10-15] MEDS ORDERED: Albuterol HFA 18 Gm Inhaler INH PRN (15:39)
[2022-10-15] MEDS ORDERED: Hydrocortisone 1% Crm 30 GM Tube TOP PRN (15:41)
[2022-10-15] MEDS ORDERED: hydrOXYzine HCl 25 MG Tab PO PRN (15:42)
[2022-10-15] MEDS ORDERED: Nitroglycerin 0.4 MG Tab.SL SL PRN (15:46)
[2022-10-15] MEDS: Albuterol/Ipratropium 3.0-0.5 MG/3 ML Neb Soln NEB SCH ×2 (17:23→21:54)
[2022-10-15] MEDS: tiZANidine 4 MG Tab PO SCH ×2 (18:23→21:53)
[2022-10-15] MEDS: Carvedilol 6.25 MG Tab PO SCH (18:23)
[2022-10-15] MEDS: Lactulose Soln 10 GM/15 ML 30 ML UD Cup PO SCH (21:51)
[2022-10-15] MEDS: Docusate Sodium 100 MG Cap PO SCH (21:52)
[2022-10-15] MEDS: Apixaban 2.5 MG Tab PO SCH (21:52)
[2022-10-15] MEDS: Amoxicillin/Clavulanate K 875-125 MG Tab PO SCH (21:53)
[2022-10-15] MEDS: Morphine 15 MG Tab.ER PO SCH (21:53)
[2022-10-15] MEDS: Gabapentin 300 MG Cap PO SCH (21:53)
[2022-10-16] MEDS: Albuterol/Ipratropium 3.0-0.5 MG/3 ML Neb Soln NEB SCH ×4 (06:37→21:55)
[2022-10-16 08:13] LABS: CALCIUM 8.8 mg/dL (8.5-10.1); CREATININE 2.1 mg/dL (0.70-1.30); EST CRCL DRUG DOSING (CG) 28.88 mL/min; POTASSIUM,K 3.9 mmol/L (3.5-5.1)
[2022-10-16 08:15] LABS: ANION GAP 12.9 mmol/L (5-15)
[2022-10-16] MEDS: Carvedilol 6.25 MG Tab PO SCH ×2 (09:05→18:01)
[2022-10-16] MEDS: Losartan 50 MG Tab PO SCH (09:05)
[2022-10-16] MEDS: Docusate Sodium 100 MG Cap PO SCH ×2 (09:06→21:55)
[2022-10-16] MEDS: Venlafaxine 75 MG Cap.ER PO SCH (09:06)
[2022-10-16] MEDS: Cholecalciferol (Vitamin D3) 25 MCG Tab PO SCH (09:06)
[2022-10-16] MEDS: Amoxicillin/Clavulanate K 875-125 MG Tab PO SCH ×2 (09:06→21:54)
[2022-10-16] MEDS: Furosemide 40 MG Tab PO SCH (09:06)
[2022-10-16] MEDS: Ezetimibe 10 MG Tab PO SCH (09:06)
[2022-10-16] MEDS: Morphine 15 MG Tab.ER PO SCH ×3 (09:07→21:54)
[2022-10-16] MEDS: Aspirin 81 MG Tab.EC PO SCH (09:07)
[2022-10-16] MEDS: Gabapentin 300 MG Cap PO SCH ×3 (09:07→21:55)
[2022-10-16] MEDS: Venlafaxine 150 MG Cap.ER PO SCH (09:07)
[2022-10-16] MEDS: amLODIPine 5 MG Tab PO SCH (09:08)
[2022-10-16] MEDS: Lactulose Soln 10 GM/15 ML 30 ML UD Cup PO SCH ×2 (09:08→21:53)
[2022-10-16] MEDS: Tamsulosin 0.4 MG Cap.ER PO SCH (09:08)
[2022-10-16] MEDS: Apixaban 2.5 MG Tab PO SCH ×2 (09:08→21:54)
[2022-10-16] MEDS: Tiotropium BR/Olodaterol HCL 4 GM Inhalation Spray 2.5mcg/1 dose; 10 doses INH SCH (09:09)
[2022-10-16] MEDS: POTASSIUM GLUCONATE PO SCH (09:09)
[2022-10-16] MEDS: Lidocaine 4% 1 each Patch TOP SCH (09:09)
[2022-10-16] MEDS: tiZANidine 4 MG Tab PO SCH ×2 (18:01→21:54)
[2022-10-17] MEDS: Albuterol/Ipratropium 3.0-0.5 MG/3 ML Neb Soln NEB SCH ×4 (07:33→20:26)
[2022-10-17] MEDS: amLODIPine 5 MG Tab PO SCH (09:10)
[2022-10-17] MEDS: Morphine 15 MG Tab.ER PO SCH ×3 (09:10→20:26)
[2022-10-17] MEDS: Venlafaxine 75 MG Cap.ER PO SCH (09:11)
[2022-10-17] MEDS: Cholecalciferol (Vitamin D3) 25 MCG Tab PO SCH (09:11)
[2022-10-17] MEDS: Gabapentin 300 MG Cap PO SCH ×3 (09:11→20:25)
[2022-10-17] MEDS: Carvedilol 6.25 MG Tab PO SCH ×2 (09:11→17:51)
[2022-10-17] MEDS: Docusate Sodium 100 MG Cap PO SCH ×2 (09:11→20:26)
[2022-10-17] MEDS: Losartan 50 MG Tab PO SCH (09:11)
[2022-10-17] MEDS: Venlafaxine 150 MG Cap.ER PO SCH (09:11)
[2022-10-17] MEDS: Furosemide 40 MG Tab PO SCH (09:11)
[2022-10-17] MEDS: Apixaban 2.5 MG Tab PO SCH ×2 (09:12→20:26)
[2022-10-17] MEDS: Amoxicillin/Clavulanate K 875-125 MG Tab PO SCH ×2 (09:12→20:26)
[2022-10-17] MEDS: Ezetimibe 10 MG Tab PO SCH (09:12)
[2022-10-17] MEDS: Lactulose Soln 10 GM/15 ML 30 ML UD Cup PO SCH ×2 (09:12→20:25)
[2022-10-17] MEDS: Aspirin 81 MG Tab.EC PO SCH (09:12)
[2022-10-17] MEDS: Tamsulosin 0.4 MG Cap.ER PO SCH (09:12)
[2022-10-17] MEDS: POTASSIUM GLUCONATE PO SCH (09:13)
[2022-10-17] MEDS: Tiotropium BR/Olodaterol HCL 4 GM Inhalation Spray 2.5mcg/1 dose; 10 doses INH SCH (09:13)
[2022-10-17] MEDS: Lidocaine 4% 1 each Patch TOP SCH (10:40)
[2022-10-17] MEDS: tiZANidine 4 MG Tab PO SCH ×2 (17:51→20:26)
[2022-10-18] MEDS: Albuterol/Ipratropium 3.0-0.5 MG/3 ML Neb Soln NEB SCH ×4 (06:02→20:43)
[2022-10-18] MEDS: Amoxicillin/Clavulanate K 875-125 MG Tab PO SCH ×2 (08:55→20:44)
[2022-10-18] MEDS: Lactulose Soln 10 GM/15 ML 30 ML UD Cup PO SCH ×2 (08:55→20:45)
[2022-10-18] MEDS: Losartan 50 MG Tab PO SCH (08:55)
[2022-10-18] MEDS: Gabapentin 300 MG Cap PO SCH ×3 (08:55→20:43)
[2022-10-18] MEDS: Tamsulosin 0.4 MG Cap.ER PO SCH (08:56)
[2022-10-18] MEDS: Aspirin 81 MG Tab.EC PO SCH (08:56)
[2022-10-18] MEDS: Venlafaxine 150 MG Cap.ER PO SCH (08:56)
[2022-10-18] MEDS: Morphine 15 MG Tab.ER PO SCH ×3 (08:56→20:44)
[2022-10-18] MEDS: Apixaban 2.5 MG Tab PO SCH ×2 (08:56→20:44)
[2022-10-18] MEDS: Venlafaxine 75 MG Cap.ER PO SCH (08:56)
[2022-10-18] MEDS: Ezetimibe 10 MG Tab PO SCH (08:57)
[2022-10-18] MEDS: Carvedilol 6.25 MG Tab PO SCH ×2 (08:57→17:43)
[2022-10-18] MEDS: Furosemide 40 MG Tab PO SCH (08:57)
[2022-10-18] MEDS: Docusate Sodium 100 MG Cap PO SCH ×2 (08:57→20:45)
[2022-10-18] MEDS: amLODIPine 5 MG Tab PO SCH (08:57)
[2022-10-18] MEDS: Cholecalciferol (Vitamin D3) 25 MCG Tab PO SCH (08:58)
[2022-10-18] MEDS: POTASSIUM GLUCONATE PO SCH (09:10)
[2022-10-18] MEDS: Tiotropium BR/Olodaterol HCL 4 GM Inhalation Spray 2.5mcg/1 dose; 10 doses INH SCH (09:11)
[2022-10-18] MEDS: Lidocaine 4% 1 each Patch TOP SCH (09:11)
[2022-10-18] MEDS: tiZANidine 4 MG Tab PO SCH ×2 (17:43→20:44)
[2022-10-19] MEDS: Albuterol/Ipratropium 3.0-0.5 MG/3 ML Neb Soln NEB SCH ×4 (07:23→21:00)
[2022-10-19] MEDS: Tamsulosin 0.4 MG Cap.ER PO SCH (09:56)
[2022-10-19] MEDS: Furosemide 40 MG Tab PO SCH (09:56)
[2022-10-19] MEDS: Ezetimibe 10 MG Tab PO SCH (09:56)
[2022-10-19] MEDS: Morphine 15 MG Tab.ER PO SCH ×3 (09:56→20:59)
[2022-10-19] MEDS: Venlafaxine 150 MG Cap.ER PO SCH (09:56)
[2022-10-19] MEDS: Docusate Sodium 100 MG Cap PO SCH ×2 (09:58→20:59)
[2022-10-19] MEDS: Gabapentin 300 MG Cap PO SCH ×3 (09:58→21:00)
[2022-10-19] MEDS: Aspirin 81 MG Tab.EC PO SCH (09:58)
[2022-10-19] MEDS: Apixaban 2.5 MG Tab PO SCH ×2 (09:58→20:59)
[2022-10-19] MEDS: amLODIPine 5 MG Tab PO SCH (09:58)
[2022-10-19] MEDS: Losartan 50 MG Tab PO SCH (09:58)
[2022-10-19] MEDS: Cholecalciferol (Vitamin D3) 25 MCG Tab PO SCH (09:58)
[2022-10-19] MEDS: Venlafaxine 75 MG Cap.ER PO SCH (09:58)
[2022-10-19] MEDS: Lactulose Soln 10 GM/15 ML 30 ML UD Cup PO SCH ×2 (09:59→21:00)
[2022-10-19] MEDS: Lidocaine 4% 1 each Patch TOP SCH (09:59)
[2022-10-19] MEDS: Carvedilol 6.25 MG Tab PO SCH ×2 (09:59→18:18)
[2022-10-19] MEDS: Tiotropium BR/Olodaterol HCL 4 GM Inhalation Spray 2.5mcg/1 dose; 10 doses INH SCH (10:00)
[2022-10-19] MEDS: POTASSIUM GLUCONATE PO SCH (10:06)
[2022-10-19] MEDS: tiZANidine 4 MG Tab PO SCH ×2 (18:17→21:00)
[2022-10-20] MEDS: Albuterol/Ipratropium 3.0-0.5 MG/3 ML Neb Soln NEB SCH ×4 (06:59→20:30)
[2022-10-20] MEDS: amLODIPine 5 MG Tab PO SCH (08:08)
[2022-10-20] MEDS: Venlafaxine 150 MG Cap.ER PO SCH (08:08)
[2022-10-20] MEDS: Cholecalciferol (Vitamin D3) 25 MCG Tab PO SCH (08:13)
[2022-10-20] MEDS: Losartan 50 MG Tab PO SCH (08:13)
[2022-10-20] MEDS: Morphine 15 MG Tab.ER PO SCH ×3 (08:14→20:30)
[2022-10-20] MEDS: Docusate Sodium 100 MG Cap PO SCH ×2 (08:14→20:29)
[2022-10-20] MEDS: Venlafaxine 75 MG Cap.ER PO SCH (08:14)
[2022-10-20] MEDS: Tamsulosin 0.4 MG Cap.ER PO SCH (08:16)
[2022-10-20] MEDS: Gabapentin 300 MG Cap PO SCH ×3 (08:16→20:29)
[2022-10-20] MEDS: Lidocaine 4% 1 each Patch TOP SCH (08:16)
[2022-10-20] MEDS: Lactulose Soln 10 GM/15 ML 30 ML UD Cup PO SCH ×2 (08:16→20:30)
[2022-10-20] MEDS: POTASSIUM GLUCONATE PO SCH (08:17)
[2022-10-20] MEDS: Aspirin 81 MG Tab.EC PO SCH (08:17)
[2022-10-20] MEDS: Tiotropium BR/Olodaterol HCL 4 GM Inhalation Spray 2.5mcg/1 dose; 10 doses INH SCH (08:18)
[2022-10-20] MEDS: Furosemide 40 MG Tab PO SCH (08:18)
[2022-10-20] MEDS: Carvedilol 6.25 MG Tab PO SCH ×2 (08:19→17:45)
[2022-10-20] MEDS: Ezetimibe 10 MG Tab PO SCH (08:19)
[2022-10-20] MEDS: Apixaban 2.5 MG Tab PO SCH ×2 (08:19→20:30)
[2022-10-20] MEDS: tiZANidine 4 MG Tab PO SCH ×2 (17:45→20:30)
[2022-10-21] MEDS: Albuterol/Ipratropium 3.0-0.5 MG/3 ML Neb Soln NEB SCH ×4 (06:40→21:08)
[2022-10-21] MEDS: amLODIPine 5 MG Tab PO SCH (09:16)
[2022-10-21] MEDS: Aspirin 81 MG Tab.EC PO SCH (09:16)
[2022-10-21] MEDS: Lidocaine 4% 1 each Patch TOP SCH (09:16)
[2022-10-21] MEDS: Furosemide 40 MG Tab PO SCH (09:16)
[2022-10-21] MEDS: Docusate Sodium 100 MG Cap PO SCH ×2 (09:17→21:08)
[2022-10-21] MEDS: Venlafaxine 150 MG Cap.ER PO SCH (09:17)
[2022-10-21] MEDS: Losartan 50 MG Tab PO SCH (09:17)
[2022-10-21] MEDS: Cholecalciferol (Vitamin D3) 25 MCG Tab PO SCH (09:17)
[2022-10-21] MEDS: Morphine 15 MG Tab.ER PO SCH ×3 (09:17→21:09)
[2022-10-21] MEDS: Ezetimibe 10 MG Tab PO SCH (09:17)
[2022-10-21] MEDS: Gabapentin 300 MG Cap PO SCH ×3 (09:18→21:09)
[2022-10-21] MEDS: Venlafaxine 75 MG Cap.ER PO SCH (09:18)
[2022-10-21] MEDS: Apixaban 2.5 MG Tab PO SCH ×2 (09:18→21:08)
[2022-10-21] MEDS: Lactulose Soln 10 GM/15 ML 30 ML UD Cup PO SCH ×2 (09:18→21:08)
[2022-10-21] MEDS: Carvedilol 6.25 MG Tab PO SCH ×2 (09:18→17:19)
[2022-10-21] MEDS: Tamsulosin 0.4 MG Cap.ER PO SCH (09:18)
[2022-10-21] MEDS: Tiotropium BR/Olodaterol HCL 4 GM Inhalation Spray 2.5mcg/1 dose; 10 doses INH SCH (09:22)
[2022-10-21] MEDS: POTASSIUM GLUCONATE PO SCH (09:23)
[2022-10-21] MEDS: tiZANidine 4 MG Tab PO SCH ×2 (17:17→21:09)
[2022-10-22] MEDS: Albuterol/Ipratropium 3.0-0.5 MG/3 ML Neb Soln NEB SCH ×4 (06:13→21:04)
[2022-10-22] MEDS: Lidocaine 4% 1 each Patch TOP SCH (08:27)
[2022-10-22] MEDS: Lactulose Soln 10 GM/15 ML 30 ML UD Cup PO SCH ×2 (08:27→21:04)
[2022-10-22] MEDS: Aspirin 81 MG Tab.EC PO SCH (08:28)
[2022-10-22] MEDS: Carvedilol 6.25 MG Tab PO SCH ×2 (08:28→17:48)
[2022-10-22] MEDS: Tamsulosin 0.4 MG Cap.ER PO SCH (08:28)
[2022-10-22] MEDS: Furosemide 40 MG Tab PO SCH (08:28)
[2022-10-22] MEDS: Gabapentin 300 MG Cap PO SCH ×3 (08:28→21:07)
[2022-10-22] MEDS: Ezetimibe 10 MG Tab PO SCH (08:29)
[2022-10-22] MEDS: Venlafaxine 150 MG Cap.ER PO SCH (08:29)
[2022-10-22] MEDS: Venlafaxine 75 MG Cap.ER PO SCH (08:29)
[2022-10-22] MEDS: Morphine 15 MG Tab.ER PO SCH ×3 (08:29→21:06)
[2022-10-22] MEDS: Losartan 50 MG Tab PO SCH (08:29)
[2022-10-22] MEDS: Apixaban 2.5 MG Tab PO SCH ×2 (08:30→21:07)
[2022-10-22] MEDS: Cholecalciferol (Vitamin D3) 25 MCG Tab PO SCH (08:30)
[2022-10-22] MEDS: Docusate Sodium 100 MG Cap PO SCH ×2 (08:30→21:06)
[2022-10-22] MEDS: POTASSIUM GLUCONATE PO SCH (08:30)
[2022-10-22] MEDS: amLODIPine 5 MG Tab PO SCH (08:30)
[2022-10-22] MEDS: Tiotropium BR/Olodaterol HCL 4 GM Inhalation Spray 2.5mcg/1 dose; 10 doses INH SCH (08:31)
[2022-10-22] MEDS: tiZANidine 4 MG Tab PO SCH ×2 (17:48→21:07)
[2022-10-23] MEDS: Albuterol/Ipratropium 3.0-0.5 MG/3 ML Neb Soln NEB SCH ×4 (06:05→20:06)
[2022-10-23] MEDS: Carvedilol 6.25 MG Tab PO SCH ×2 (08:59→17:39)
[2022-10-23] MEDS: Tamsulosin 0.4 MG Cap.ER PO SCH (09:00)
[2022-10-23] MEDS: Venlafaxine 75 MG Cap.ER PO SCH (09:00)
[2022-10-23] MEDS: Venlafaxine 150 MG Cap.ER PO SCH (09:00)
[2022-10-23] MEDS: Ezetimibe 10 MG Tab PO SCH (09:00)
[2022-10-23] MEDS: Docusate Sodium 100 MG Cap PO SCH ×2 (09:00→20:03)
[2022-10-23] MEDS: Morphine 15 MG Tab.ER PO SCH ×3 (09:00→20:03)
[2022-10-23] MEDS: Gabapentin 300 MG Cap PO SCH ×3 (09:01→20:04)
[2022-10-23] MEDS: Furosemide 40 MG Tab PO SCH (09:01)
[2022-10-23] MEDS: Aspirin 81 MG Tab.EC PO SCH (09:01)
[2022-10-23] MEDS: Losartan 50 MG Tab PO SCH (09:01)
[2022-10-23] MEDS: amLODIPine 5 MG Tab PO SCH (09:01)
[2022-10-23] MEDS: Cholecalciferol (Vitamin D3) 25 MCG Tab PO SCH (09:01)
[2022-10-23] MEDS: Lactulose Soln 10 GM/15 ML 30 ML UD Cup PO SCH ×2 (09:02→20:03)
[2022-10-23] MEDS: Lidocaine 4% 1 each Patch TOP SCH (09:02)
[2022-10-23] MEDS: Apixaban 2.5 MG Tab PO SCH ×2 (09:02→20:04)
[2022-10-23] MEDS: POTASSIUM GLUCONATE PO SCH (09:03)
[2022-10-23] MEDS: Tiotropium BR/Olodaterol HCL 4 GM Inhalation Spray 2.5mcg/1 dose; 10 doses INH SCH (09:04)
[2022-10-23] MEDS: tiZANidine 4 MG Tab PO SCH ×2 (17:39→20:04)
[2022-10-24] MEDS: Albuterol/Ipratropium 3.0-0.5 MG/3 ML Neb Soln NEB SCH ×4 (06:41→20:07)
[2022-10-24] MEDS: Venlafaxine 150 MG Cap.ER PO SCH (09:32)
[2022-10-24] MEDS: Morphine 15 MG Tab.ER PO SCH ×3 (09:32→20:11)
[2022-10-24] MEDS: Ezetimibe 10 MG Tab PO SCH (09:33)
[2022-10-24] MEDS: Carvedilol 6.25 MG Tab PO SCH ×2 (09:33→17:29)
[2022-10-24] MEDS: Tamsulosin 0.4 MG Cap.ER PO SCH (09:33)
[2022-10-24] MEDS: Cholecalciferol (Vitamin D3) 25 MCG Tab PO SCH (09:33)
[2022-10-24] MEDS: Gabapentin 300 MG Cap PO SCH ×3 (09:33→20:08)
[2022-10-24] MEDS: Apixaban 2.5 MG Tab PO SCH ×2 (09:33→20:08)
[2022-10-24] MEDS: Lactulose Soln 10 GM/15 ML 30 ML UD Cup PO SCH ×2 (09:34→20:07)
[2022-10-24] MEDS: Venlafaxine 75 MG Cap.ER PO SCH (09:34)
[2022-10-24] MEDS: Docusate Sodium 100 MG Cap PO SCH ×2 (09:34→20:08)
[2022-10-24] MEDS: Aspirin 81 MG Tab.EC PO SCH (09:34)
[2022-10-24] MEDS: Lidocaine 4% 1 each Patch TOP SCH (09:34)
[2022-10-24] MEDS: POTASSIUM GLUCONATE PO SCH (09:35)
[2022-10-24] MEDS: Tiotropium BR/Olodaterol HCL 4 GM Inhalation Spray 2.5mcg/1 dose; 10 doses INH SCH (09:35)
[2022-10-24] MEDS: Furosemide 40 MG Tab PO SCH (11:18)
[2022-10-24] MEDS: Losartan 50 MG Tab PO SCH (11:18)
[2022-10-24] MEDS: amLODIPine 5 MG Tab PO SCH (11:18)
[2022-10-24] MEDS: tiZANidine 4 MG Tab PO SCH ×2 (17:29→20:07)
[2022-10-25] MEDS: Albuterol/Ipratropium 3.0-0.5 MG/3 ML Neb Soln NEB SCH ×4 (06:01→20:36)
[2022-10-25] MEDS: Lactulose Soln 10 GM/15 ML 30 ML UD Cup PO SCH ×2 (08:52→20:35)
[2022-10-25] MEDS: Losartan 50 MG Tab PO SCH (08:56)
[2022-10-25] MEDS: Docusate Sodium 100 MG Cap PO SCH ×2 (08:57→20:37)
[2022-10-25] MEDS: Venlafaxine 75 MG Cap.ER PO SCH (08:57)
[2022-10-25] MEDS: Furosemide 40 MG Tab PO SCH (08:57)
[2022-10-25] MEDS: Morphine 15 MG Tab.ER PO SCH ×3 (08:58→20:37)
[2022-10-25] MEDS: Cholecalciferol (Vitamin D3) 25 MCG Tab PO SCH (08:59)
[2022-10-25] MEDS: Gabapentin 300 MG Cap PO SCH ×3 (08:59→20:38)
[2022-10-25] MEDS: Ezetimibe 10 MG Tab PO SCH (09:00)
[2022-10-25] MEDS: Venlafaxine 150 MG Cap.ER PO SCH (09:00)
[2022-10-25] MEDS: Tamsulosin 0.4 MG Cap.ER PO SCH (09:00)
[2022-10-25] MEDS: Carvedilol 6.25 MG Tab PO SCH ×2 (09:00→17:37)
[2022-10-25] MEDS: amLODIPine 5 MG Tab PO SCH (09:01)
[2022-10-25] MEDS: Apixaban 2.5 MG Tab PO SCH ×2 (09:02→20:38)
[2022-10-25] MEDS: Aspirin 81 MG Tab.EC PO SCH (09:02)
[2022-10-25] MEDS: Tiotropium BR/Olodaterol HCL 4 GM Inhalation Spray 2.5mcg/1 dose; 10 doses INH SCH (09:14)
[2022-10-25] MEDS: POTASSIUM GLUCONATE PO SCH (09:19)
[2022-10-25] MEDS: Lidocaine 4% 1 each Patch TOP SCH (12:27)
[2022-10-25] MEDS: tiZANidine 4 MG Tab PO SCH ×2 (17:37→20:37)
[2022-10-26] MEDS: Albuterol/Ipratropium 3.0-0.5 MG/3 ML Neb Soln NEB SCH ×4 (07:14→20:10)
[2022-10-26] MEDS: Tiotropium BR/Olodaterol HCL 4 GM Inhalation Spray 2.5mcg/1 dose; 10 doses INH SCH (09:30)
[2022-10-26] MEDS: Morphine 15 MG Tab.ER PO SCH ×3 (09:35→20:11)
[2022-10-26] MEDS: Apixaban 2.5 MG Tab PO SCH ×2 (09:36→20:11)
[2022-10-26] MEDS: amLODIPine 5 MG Tab PO SCH (09:36)
[2022-10-26] MEDS: Docusate Sodium 100 MG Cap PO SCH ×2 (09:36→20:11)
[2022-10-26] MEDS: Cholecalciferol (Vitamin D3) 25 MCG Tab PO SCH (09:37)
[2022-10-26] MEDS: Venlafaxine 150 MG Cap.ER PO SCH (09:38)
[2022-10-26] MEDS: Aspirin 81 MG Tab.EC PO SCH (09:38)
[2022-10-26] MEDS: Losartan 50 MG Tab PO SCH (09:38)
[2022-10-26] MEDS: Furosemide 40 MG Tab PO SCH (09:39)
[2022-10-26] MEDS: Ezetimibe 10 MG Tab PO SCH (09:39)
[2022-10-26] MEDS: Venlafaxine 75 MG Cap.ER PO SCH (09:40)
[2022-10-26] MEDS: Gabapentin 300 MG Cap PO SCH ×3 (09:40→20:09)
[2022-10-26] MEDS: Carvedilol 6.25 MG Tab PO SCH ×2 (09:41→17:31)
[2022-10-26] MEDS: Tamsulosin 0.4 MG Cap.ER PO SCH (09:41)
[2022-10-26] MEDS: Lactulose Soln 10 GM/15 ML 30 ML UD Cup PO SCH ×2 (09:42→20:08)
[2022-10-26] MEDS: Lidocaine 4% 1 each Patch TOP SCH (09:42)
[2022-10-26] MEDS: POTASSIUM GLUCONATE PO SCH (09:46)
[2022-10-26] MEDS: tiZANidine 4 MG Tab PO SCH ×2 (17:35→20:10)
[2022-10-27] MEDS: Albuterol/Ipratropium 3.0-0.5 MG/3 ML Neb Soln NEB SCH ×5 (06:59→20:21)
[2022-10-27] MEDS: Gabapentin 300 MG Cap PO SCH ×3 (09:53→20:20)
[2022-10-27] MEDS: Tamsulosin 0.4 MG Cap.ER PO SCH (09:53)
[2022-10-27] MEDS: Cholecalciferol (Vitamin D3) 25 MCG Tab PO SCH (09:54)
[2022-10-27] MEDS: Furosemide 40 MG Tab PO SCH (09:54)
[2022-10-27] MEDS: Losartan 50 MG Tab PO SCH (09:56)
[2022-10-27] MEDS: Venlafaxine 150 MG Cap.ER PO SCH (09:56)
[2022-10-27] MEDS: Morphine 15 MG Tab.ER PO SCH ×3 (09:57→20:20)
[2022-10-27] MEDS: Aspirin 81 MG Tab.EC PO SCH (09:57)
[2022-10-27] MEDS: Ezetimibe 10 MG Tab PO SCH (09:59)
[2022-10-27] MEDS: Carvedilol 6.25 MG Tab PO SCH ×2 (10:01→17:53)
[2022-10-27] MEDS: Lidocaine 4% 1 each Patch TOP SCH (10:04)
[2022-10-27] MEDS: Lactulose Soln 10 GM/15 ML 30 ML UD Cup PO SCH ×2 (10:05→20:20)
[2022-10-27] MEDS: Venlafaxine 75 MG Cap.ER PO SCH (10:05)
[2022-10-27] MEDS: Docusate Sodium 100 MG Cap PO SCH ×2 (10:06→20:20)
[2022-10-27] MEDS: amLODIPine 5 MG Tab PO SCH (10:07)
[2022-10-27] MEDS: Apixaban 2.5 MG Tab PO SCH ×2 (10:08→20:20)
[2022-10-27] MEDS: POTASSIUM GLUCONATE PO SCH (10:09)
[2022-10-27] MEDS: Tiotropium BR/Olodaterol HCL 4 GM Inhalation Spray 2.5mcg/1 dose; 10 doses INH SCH (10:12)
[2022-10-27] MEDS: tiZANidine 4 MG Tab PO SCH ×2 (17:53→20:20)
[2022-10-28] MEDS: Albuterol/Ipratropium 3.0-0.5 MG/3 ML Neb Soln NEB SCH ×4 (06:09→20:18)
[2022-10-28] MEDS: Cholecalciferol (Vitamin D3) 25 MCG Tab PO SCH (08:15)
[2022-10-28] MEDS: Ezetimibe 10 MG Tab PO SCH (08:15)
[2022-10-28] MEDS: Tamsulosin 0.4 MG Cap.ER PO SCH (08:15)
[2022-10-28] MEDS: Docusate Sodium 100 MG Cap PO SCH ×2 (08:15→20:18)
[2022-10-28] MEDS: Venlafaxine 150 MG Cap.ER PO SCH (08:15)
[2022-10-28] MEDS: Venlafaxine 75 MG Cap.ER PO SCH (08:15)
[2022-10-28] MEDS: Gabapentin 300 MG Cap PO SCH ×3 (08:15→20:18)
[2022-10-28] MEDS: Losartan 50 MG Tab PO SCH (08:15)
[2022-10-28] MEDS: Apixaban 2.5 MG Tab PO SCH ×2 (08:15→20:18)
[2022-10-28] MEDS: Morphine 15 MG Tab.ER PO SCH ×3 (08:15→20:17)
[2022-10-28] MEDS: Lidocaine 4% 1 each Patch TOP SCH (08:15)
[2022-10-28] MEDS: Aspirin 81 MG Tab.EC PO SCH (08:15)
[2022-10-28] MEDS: amLODIPine 5 MG Tab PO SCH (08:16)
[2022-10-28] MEDS: Furosemide 40 MG Tab PO SCH (08:16)
[2022-10-28] MEDS: Lactulose Soln 10 GM/15 ML 30 ML UD Cup PO SCH ×2 (08:16→20:16)
[2022-10-28] MEDS: Carvedilol 6.25 MG Tab PO SCH ×2 (08:16→18:13)
[2022-10-28] MEDS: Tiotropium BR/Olodaterol HCL 4 GM Inhalation Spray 2.5mcg/1 dose; 10 doses INH SCH (08:17)
[2022-10-28] MEDS: POTASSIUM GLUCONATE PO SCH (08:23)
[2022-10-28] MEDS: tiZANidine 4 MG Tab PO SCH ×2 (18:13→20:18)
[2022-10-29] MEDS: Albuterol/Ipratropium 3.0-0.5 MG/3 ML Neb Soln NEB SCH ×4 (06:50→21:03)
[2022-10-29] MEDS: Docusate Sodium 100 MG Cap PO SCH ×2 (08:10→21:04)
[2022-10-29] MEDS: Gabapentin 300 MG Cap PO SCH ×3 (08:10→21:05)
[2022-10-29] MEDS: Venlafaxine 75 MG Cap.ER PO SCH (08:10)
[2022-10-29] MEDS: Lactulose Soln 10 GM/15 ML 30 ML UD Cup PO SCH ×2 (08:10→21:03)
[2022-10-29] MEDS: Lidocaine 4% 1 each Patch TOP SCH (08:10)
[2022-10-29] MEDS: Apixaban 2.5 MG Tab PO SCH ×2 (08:11→21:05)
[2022-10-29] MEDS: Morphine 15 MG Tab.ER PO SCH ×3 (08:11→21:04)
[2022-10-29] MEDS: Furosemide 40 MG Tab PO SCH (08:11)
[2022-10-29] MEDS: Cholecalciferol (Vitamin D3) 25 MCG Tab PO SCH (08:11)
[2022-10-29] MEDS: Tamsulosin 0.4 MG Cap.ER PO SCH (08:11)
[2022-10-29] MEDS: Carvedilol 6.25 MG Tab PO SCH ×2 (08:11→17:38)
[2022-10-29] MEDS: Ezetimibe 10 MG Tab PO SCH (08:11)
[2022-10-29] MEDS: Losartan 50 MG Tab PO SCH (08:11)
[2022-10-29] MEDS: Venlafaxine 150 MG Cap.ER PO SCH (08:11)
[2022-10-29] MEDS: Aspirin 81 MG Tab.EC PO SCH (08:11)
[2022-10-29] MEDS: Tiotropium BR/Olodaterol HCL 4 GM Inhalation Spray 2.5mcg/1 dose; 10 doses INH SCH (08:12)
[2022-10-29] MEDS: amLODIPine 5 MG Tab PO SCH (08:12)
[2022-10-29] MEDS: POTASSIUM GLUCONATE PO SCH (08:13)
[2022-10-29] MEDS: tiZANidine 4 MG Tab PO SCH ×2 (17:38→21:05)
[2022-10-30] MEDS: Albuterol/Ipratropium 3.0-0.5 MG/3 ML Neb Soln NEB SCH ×4 (06:34→20:40)
[2022-10-30] MEDS: POTASSIUM GLUCONATE PO SCH (08:15)
[2022-10-30] MEDS: Tiotropium BR/Olodaterol HCL 4 GM Inhalation Spray 2.5mcg/1 dose; 10 doses INH SCH (08:15)
[2022-10-30] MEDS: Lactulose Soln 10 GM/15 ML 30 ML UD Cup PO SCH ×2 (08:32→20:40)
[2022-10-30] MEDS: Lidocaine 4% 1 each Patch TOP SCH (08:33)
[2022-10-30] MEDS: Aspirin 81 MG Tab.EC PO SCH (08:34)
[2022-10-30] MEDS: Tamsulosin 0.4 MG Cap.ER PO SCH (08:34)
[2022-10-30] MEDS: Gabapentin 300 MG Cap PO SCH ×3 (08:34→20:42)
[2022-10-30] MEDS: Docusate Sodium 100 MG Cap PO SCH ×2 (08:34→20:41)
[2022-10-30] MEDS: Venlafaxine 75 MG Cap.ER PO SCH (08:34)
[2022-10-30] MEDS: amLODIPine 5 MG Tab PO SCH (08:34)
[2022-10-30] MEDS: Cholecalciferol (Vitamin D3) 25 MCG Tab PO SCH (08:34)
[2022-10-30] MEDS: Morphine 15 MG Tab.ER PO SCH ×3 (08:34→20:41)
[2022-10-30] MEDS: Apixaban 2.5 MG Tab PO SCH ×2 (08:35→20:41)
[2022-10-30] MEDS: Losartan 50 MG Tab PO SCH (08:35)
[2022-10-30] MEDS: Ezetimibe 10 MG Tab PO SCH (08:35)
[2022-10-30] MEDS: Furosemide 40 MG Tab PO SCH (08:35)
[2022-10-30] MEDS: Venlafaxine 150 MG Cap.ER PO SCH (08:35)
[2022-10-30] MEDS: Carvedilol 6.25 MG Tab PO SCH ×2 (08:35→17:40)
[2022-10-30] MEDS: tiZANidine 4 MG Tab PO SCH ×2 (17:40→20:41)
[2022-10-31] MEDS: Albuterol/Ipratropium 3.0-0.5 MG/3 ML Neb Soln NEB SCH ×4 (06:31→20:19)
[2022-10-31] MEDS: Lactulose Soln 10 GM/15 ML 30 ML UD Cup PO SCH ×2 (09:04→20:19)
[2022-10-31] MEDS: Lidocaine 4% 1 each Patch TOP SCH (09:04)
[2022-10-31] MEDS: Tamsulosin 0.4 MG Cap.ER PO SCH (09:05)
[2022-10-31] MEDS: Venlafaxine 75 MG Cap.ER PO SCH (09:05)
[2022-10-31] MEDS: Ezetimibe 10 MG Tab PO SCH (09:05)
[2022-10-31] MEDS: Morphine 15 MG Tab.ER PO SCH ×3 (09:05→20:19)
[2022-10-31] MEDS: Carvedilol 6.25 MG Tab PO SCH ×2 (09:05→17:05)
[2022-10-31] MEDS: Aspirin 81 MG Tab.EC PO SCH (09:05)
[2022-10-31] MEDS: Apixaban 2.5 MG Tab PO SCH ×2 (09:05→20:20)
[2022-10-31] MEDS: Venlafaxine 150 MG Cap.ER PO SCH (09:05)
[2022-10-31] MEDS: Cholecalciferol (Vitamin D3) 25 MCG Tab PO SCH (09:05)
[2022-10-31] MEDS: Gabapentin 300 MG Cap PO SCH ×3 (09:06→20:20)
[2022-10-31] MEDS: Furosemide 40 MG Tab PO SCH (09:06)
[2022-10-31] MEDS: POTASSIUM GLUCONATE PO SCH (09:06)
[2022-10-31] MEDS: Losartan 50 MG Tab PO SCH (09:06)
[2022-10-31] MEDS: Docusate Sodium 100 MG Cap PO SCH ×2 (09:06→20:20)
[2022-10-31] MEDS: amLODIPine 5 MG Tab PO SCH (09:06)
[2022-10-31] MEDS: Tiotropium BR/Olodaterol HCL 4 GM Inhalation Spray 2.5mcg/1 dose; 10 doses INH SCH (09:07)
[2022-10-31] MEDS: tiZANidine 4 MG Tab PO SCH ×2 (17:05→20:20)
[2022-11-01] MEDS: Albuterol/Ipratropium 3.0-0.5 MG/3 ML Neb Soln NEB SCH ×4 (06:05→21:06)
[2022-11-01] MEDS: Venlafaxine 75 MG Cap.ER PO SCH (08:17)
[2022-11-01] MEDS: Cholecalciferol (Vitamin D3) 25 MCG Tab PO SCH (08:17)
[2022-11-01] MEDS: Morphine 15 MG Tab.ER PO SCH ×3 (08:17→21:07)
[2022-11-01] MEDS: Venlafaxine 150 MG Cap.ER PO SCH (08:17)
[2022-11-01] MEDS: Apixaban 2.5 MG Tab PO SCH ×2 (08:17→21:06)
[2022-11-01] MEDS: Docusate Sodium 100 MG Cap PO SCH ×2 (08:17→21:06)
[2022-11-01] MEDS: Losartan 50 MG Tab PO SCH (08:18)
[2022-11-01] MEDS: Furosemide 40 MG Tab PO SCH (08:18)
[2022-11-01] MEDS: Ezetimibe 10 MG Tab PO SCH (08:18)
[2022-11-01] MEDS: Aspirin 81 MG Tab.EC PO SCH (08:18)
[2022-11-01] MEDS: Tamsulosin 0.4 MG Cap.ER PO SCH (08:18)
[2022-11-01] MEDS: Carvedilol 6.25 MG Tab PO SCH ×2 (08:18→17:40)
[2022-11-01] MEDS: amLODIPine 5 MG Tab PO SCH (08:18)
[2022-11-01] MEDS: Gabapentin 300 MG Cap PO SCH ×3 (08:18→21:06)
[2022-11-01] MEDS: Lidocaine 4% 1 each Patch TOP SCH (08:19)
[2022-11-01] MEDS: Tiotropium BR/Olodaterol HCL 4 GM Inhalation Spray 2.5mcg/1 dose; 10 doses INH SCH (08:19)
[2022-11-01] MEDS: Lactulose Soln 10 GM/15 ML 30 ML UD Cup PO SCH ×2 (08:19→21:06)
[2022-11-01] MEDS: POTASSIUM GLUCONATE PO SCH (08:20)
[2022-11-01] MEDS: tiZANidine 4 MG Tab PO SCH ×2 (17:40→21:07)
[2022-11-02] MEDS: Albuterol/Ipratropium 3.0-0.5 MG/3 ML Neb Soln NEB SCH ×4 (07:01→20:05)
[2022-11-02] MEDS: Lidocaine 4% 1 each Patch TOP SCH (08:41)
[2022-11-02] MEDS: Lactulose Soln 10 GM/15 ML 30 ML UD Cup PO SCH ×2 (08:42→20:05)
[2022-11-02] MEDS: Tiotropium BR/Olodaterol HCL 4 GM Inhalation Spray 2.5mcg/1 dose; 10 doses INH SCH (08:42)
[2022-11-02] MEDS: Morphine 15 MG Tab.ER PO SCH ×3 (08:43→20:05)
[2022-11-02] MEDS: Cholecalciferol (Vitamin D3) 25 MCG Tab PO SCH (08:43)
[2022-11-02] MEDS: Aspirin 81 MG Tab.EC PO SCH (08:43)
[2022-11-02] MEDS: Carvedilol 6.25 MG Tab PO SCH ×2 (08:43→17:23)
[2022-11-02] MEDS: Gabapentin 300 MG Cap PO SCH ×3 (08:43→20:05)
[2022-11-02] MEDS: Docusate Sodium 100 MG Cap PO SCH ×2 (08:43→20:06)
[2022-11-02] MEDS: Losartan 50 MG Tab PO SCH (08:43)
[2022-11-02] MEDS: POTASSIUM GLUCONATE PO SCH (08:43)
[2022-11-02] MEDS: Ezetimibe 10 MG Tab PO SCH (08:43)
[2022-11-02] MEDS: Apixaban 2.5 MG Tab PO SCH ×2 (08:43→20:05)
[2022-11-02] MEDS: Venlafaxine 150 MG Cap.ER PO SCH (08:44)
[2022-11-02] MEDS: Venlafaxine 75 MG Cap.ER PO SCH (08:44)
[2022-11-02] MEDS: Furosemide 40 MG Tab PO SCH (08:44)
[2022-11-02] MEDS: Tamsulosin 0.4 MG Cap.ER PO SCH (08:44)
[2022-11-02] MEDS: amLODIPine 5 MG Tab PO SCH (08:44)
[2022-11-02] MEDS: tiZANidine 4 MG Tab PO SCH ×2 (17:24→20:06)
[2022-11-03] MEDS: Albuterol/Ipratropium 3.0-0.5 MG/3 ML Neb Soln NEB SCH ×4 (06:12→21:09)
[2022-11-03] MEDS: Lactulose Soln 10 GM/15 ML 30 ML UD Cup PO SCH ×2 (10:21→21:10)
[2022-11-03] MEDS: Docusate Sodium 100 MG Cap PO SCH ×2 (10:21→21:10)
[2022-11-03] MEDS: Venlafaxine 75 MG Cap.ER PO SCH (10:22)
[2022-11-03] MEDS: Tamsulosin 0.4 MG Cap.ER PO SCH (10:22)
[2022-11-03] MEDS: Gabapentin 300 MG Cap PO SCH ×3 (10:22→21:10)
[2022-11-03] MEDS: Aspirin 81 MG Tab.EC PO SCH (10:22)
[2022-11-03] MEDS: Cholecalciferol (Vitamin D3) 25 MCG Tab PO SCH (10:23)
[2022-11-03] MEDS: Ezetimibe 10 MG Tab PO SCH (10:23)
[2022-11-03] MEDS: Apixaban 2.5 MG Tab PO SCH ×2 (10:24→21:10)
[2022-11-03] MEDS: Furosemide 40 MG Tab PO SCH (10:24)
[2022-11-03] MEDS: Carvedilol 6.25 MG Tab PO SCH ×2 (10:26→18:03)
[2022-11-03] MEDS: amLODIPine 5 MG Tab PO SCH (10:26)
[2022-11-03] MEDS: Venlafaxine 150 MG Cap.ER PO SCH (10:31)
[2022-11-03] MEDS: Losartan 50 MG Tab PO SCH (10:31)
[2022-11-03] MEDS: Morphine 15 MG Tab.ER PO SCH ×3 (10:34→21:10)
[2022-11-03] MEDS: Lidocaine 4% 1 each Patch TOP SCH (10:37)
[2022-11-03] MEDS: POTASSIUM GLUCONATE PO SCH (10:41)
[2022-11-03] MEDS: Tiotropium BR/Olodaterol HCL 4 GM Inhalation Spray 2.5mcg/1 dose; 10 doses INH SCH (10:42)
[2022-11-03] MEDS: tiZANidine 4 MG Tab PO SCH ×2 (18:05→21:09)
[2022-11-04] MEDS: Albuterol/Ipratropium 3.0-0.5 MG/3 ML Neb Soln NEB SCH ×2 (06:45→11:08)
[2022-11-04] MEDS: Furosemide 40 MG Tab PO SCH (08:46)
[2022-11-04] MEDS: Morphine 15 MG Tab.ER PO SCH ×2 (08:46→13:24)
[2022-11-04] MEDS: Lidocaine 4% 1 each Patch TOP SCH (08:46)
[2022-11-04] MEDS: Ezetimibe 10 MG Tab PO SCH (08:47)
[2022-11-04] MEDS: Carvedilol 6.25 MG Tab PO SCH (08:47)
[2022-11-04] MEDS: Cholecalciferol (Vitamin D3) 25 MCG Tab PO SCH (08:47)
[2022-11-04] MEDS: amLODIPine 5 MG Tab PO SCH (08:47)
[2022-11-04] MEDS: Tamsulosin 0.4 MG Cap.ER PO SCH (08:48)
[2022-11-04] MEDS: Apixaban 2.5 MG Tab PO SCH (08:48)
[2022-11-04] MEDS: Gabapentin 300 MG Cap PO SCH ×2 (08:48→13:24)
[2022-11-04] MEDS: Losartan 50 MG Tab PO SCH (08:48)
[2022-11-04] MEDS: Aspirin 81 MG Tab.EC PO SCH (08:48)
[2022-11-04] MEDS: Venlafaxine 150 MG Cap.ER PO SCH (08:48)
[2022-11-04] MEDS: Venlafaxine 75 MG Cap.ER PO SCH (08:48)
[2022-11-04] MEDS: Docusate Sodium 100 MG Cap PO SCH (08:48)
[2022-11-04 08:49] VITALS: BP 110/72; PULSE 100
[2022-11-04] MEDS: Lactulose Soln 10 GM/15 ML 30 ML UD Cup PO SCH (08:52)
[2022-11-04] MEDS: Tiotropium BR/Olodaterol HCL 4 GM Inhalation Spray 2.5mcg/1 dose; 10 doses INH SCH (08:56)
[2022-11-04] MEDS: POTASSIUM GLUCONATE PO SCH ×2 (09:49→13:24)
== END 2022-11-04 13:10 | disposition home health service (06) | DRG 947 ==
LOC: VM.MS 13:54
PROVIDERS: ADMIT Family Medicine; ATTEND Family Medicine
DX: R53.81 Other malaise (principal); I50.33 Acute on chronic diastolic (congestive) heart failure; J18.9 Pneumonia, unspecified organism; N17.9 Acute kidney failure, unspecified; N39.0 Urinary tract infection, site not specified; Z79.899 Other long term (current) drug therapy
CPT/HCPCS: 36415; 80048; 94640; 94760; 95851-GO; 97110-GP; 97116-GP; 97165-GO; 97530-GO; 97530-GP; 97535-GO; A9270-GY; J7620-GY

== ENCOUNTER 2023-10-19 12:52 | Inpatient (IN) | payer MEDICARE, BC ==
[2023-10-19] MEDS: Albuterol 0.083% 2.5 MG/3 ML Neb Soln NEB ONE ×2 (13:20→13:35)
[2023-10-19 13:24] LABS: BASOPHILS PERCENT AUTO 0.2 % (0.2-1.2); EOSINOPHILS PERCENT AUTO 0.2 % (0.0-4.0); HEMATOCRIT 42.2 % (40.0-52.0); IMMATURE GRAN ABSOLUTE AUTO 0.07 x10^3/uL (0.00-0.07); LYMPHOCYTES ABSOLUTE AUTO 0.8 x10^3/uL (1.0-4.8); LYMPHOCYTES PERCENT AUTO 4.3 % (25.0-50.0); MEAN CORPUSCULAR HEMOGLOBIN 30.8 pg (26.0-32.0); MEAN CORPUSCULAR HGB CONC 33.2 g/dL (32.0-36.0); MONOCYTES ABSOLUTE AUTO 1.4 x10^3/uL (0.0-0.8); MONOCYTES PERCENT AUTO 7.5 % (2.0-11.0); NEUTROPHILS PERCENT AUTO 87.4 % (50.0-80.0); PLATELET COUNT,PLT 234 x10^3/uL (130-400); RED BLOOD CELL COUNT 4.54 x10^6/uL (4.5-6.0)
[2023-10-19 13:43] LABS: BASE EXCESS ARTERIAL,POC 0 mmol/L ((-2)-3); HCO3 ARTERIAL,POC 26.3 mmol/L (21-28); O2 SATURATION ARTERIAL,POC 90.8 % (94-98); PCO2 ARTERIAL,POC 51 mmHg (35-48); PH ARTERIAL,POC 7.32 pH (7.35-7.45); PO2 ARTERIAL,POC 66 mmHg (83-108); TCO2 ARTERIAL,POC 25.9 mmol/L (22-29)
[2023-10-19 13:55] LABS: A/G RATIO 0.67; ALANINE AMINOTRANSFERASE,ALT 30 U/L (16-63); ALBUMIN 3.2 g/dL (3.4-5.0); ALKALINE PHOSPHATASE 110 U/L (46-116); ASPARTATE AMNIOTRANSFERASE,AST 49 U/L (15-37); BILIRUBIN TOTAL 1.3 mg/dL (0.2-1.0); BLOOD UREA NITROGEN,BUN 31 mg/dL (7-18); CARBON DIOXIDE,CO2 26 mmol/L (21-32); CHLORIDE,CL 101 mmol/L (98-107); CREATININE 2.1 mg/dL (0.70-1.30); GLUCOSE RANDOM 207 mg/dL (70-99); POTASSIUM,K 4.5 mmol/L (3.5-5.1); PRO B-TYPE NATRIUR PEPT,BNPPRO 8252 pg/mL (<=450); SODIUM,NA 141 mmol/L (136-145); WHITE BLOOD CELL COUNT,WBC 18.3 x10^3/uL (4.0-10.0)
[2023-10-19 13:56] LABS: ANION GAP 18.5 mmol/L (5-15); ESTIMATED GFR 31 mL/min (>=60)
[2023-10-19] MEDS: Furosemide 20 MG/2 ML VIAL IV ONE (14:24)
[2023-10-19] MEDS: Piperacillin/Tazobactam 4.5 GM in Sodium Chloride 0.9% 100 ML IV ONE (14:38)
[2023-10-19 14:48] LABS: CORONAVIRUS COVID-19 NAA NEGATIVE (NEGATIVE); INFLUENZA A NAA NEGATIVE (NEGATIVE); INFLUENZA B NAA NEGATIVE (NEGATIVE); RESPIRATORY SYNCYTIAL VIR NAA NEGATIVE (NEGATIVE)
[2023-10-19] MEDS ORDERED: Sodium Chloride 0.9% 1,000 ML IV SCH ×2 (15:00→15:15)
[2023-10-19] MEDS: VANCOmycin 2 GM/400 ML 2 GM in Premix Bag 1 BAG IV ONE (15:15)
[2023-10-19] MEDS: Sodium Chloride 0.9% 500 ML IV ONE ×2 (15:34→17:37)
[2023-10-19] MEDS ORDERED: Acetaminophen 325 MG Tab PO PRN (16:03)
[2023-10-19] MEDS ORDERED: Ondansetron 4 MG/2 ML SDV IV PRN (16:03)
[2023-10-19] MEDS ORDERED: Albuterol/Ipratropium 3.0-0.5 MG/3 ML Neb Soln NEB PRN (16:03)
[2023-10-19 16:50] LABS: APPEARANCE,URINE SLIGHTLY CLOUDY (CLEAR); BILIRUBIN,URINE NEGATIVE (NEGATIVE); COLOR,URINE YELLOW (YELLOW); GLUCOSE,URINE NEGATIVE (NEGATIVE); KETONES,URINE NEGATIVE (NEGATIVE); LEUKOCYTE ESTERASE,URINE MODERATE (NEGATIVE); NITRITE,URINE POSITIVE (NEGATIVE); OCCULT BLOOD,URINE SMALL (NEGATIVE); PH,URINE 5.5 (5.0-8.0); PROTEIN,URINE 30 mg/dL (NEGATIVE); UROBILINOGEN,URINE 0.2 EU/dL (0.2)
[2023-10-19 16:59] LABS: BACTERIA,URINE FEW /HPF (NOT SEEN); RBC,URINE 0-5 /HPF (NOT SEEN); SQUAMOUS EPITHELIAL CELLS,UR FEW /HPF (NOT SEEN)
[2023-10-19] MEDS: Morphine 15 MG Tab.ER PO SCH (17:19)
[2023-10-19] MEDS: methylPREDNISolone Sodium Succinate 125 MG/2 ML SDV IVPUSH ONE (17:23)
[2023-10-19] MEDS: Sodium Chloride 0.9% 1,000 ML IV SCH (17:39)
[2023-10-19] MEDS: Sodium Chloride 0.9% 1,000 ML IV ONE (17:42)
[2023-10-19] MEDS ORDERED: Acetaminophen/HYDROcodone 325-5 MG Tab PO PRN (18:00)
[2023-10-19] MEDS: Albuterol/Ipratropium 3.0-0.5 MG/3 ML Neb Soln INH SCH (18:53)
[2023-10-19] MEDS: Carvedilol 6.25 MG Tab PO SCH (18:53)
[2023-10-19] MEDS: Lactulose Soln 10 GM/15 ML 30 ML UD Cup PO SCH (21:08)
[2023-10-19] MEDS: Apixaban 2.5 MG Tab PO SCH (21:08)
[2023-10-19] MEDS: Docusate Sodium 100 MG Cap PO SCH (21:08)
[2023-10-19] MEDS: Gabapentin 300 MG Cap PO SCH (21:09)
[2023-10-19] MEDS: Piperacillin/Tazobactam 4.5 GM in Sodium Chloride 0.9% 100 ML IV SCH (23:10)
[2023-10-20 06:37] LABS: BASOPHILS PERCENT AUTO 0.1 % (0.2-1.2); HEMATOCRIT 36.4 % (40.0-52.0); HEMOGLOBIN 12.2 g/dL (14.0-18.0); IMMATURE GRAN ABSOLUTE AUTO 0.02 x10^3/uL (0.00-0.07); LYMPHOCYTES PERCENT AUTO 9.1 % (25.0-50.0); MEAN CORPUSCULAR HEMOGLOBIN 30.8 pg (26.0-32.0); MEAN CORPUSCULAR HGB CONC 33.5 g/dL (32.0-36.0); MEAN CORPUSCULAR VOLUME 91.9 fL (78.0-93.0); MONOCYTES ABSOLUTE AUTO 0.4 x10^3/uL (0.0-0.8); MONOCYTES PERCENT AUTO 3.6 % (2.0-11.0); NEUTROPHILS ABSOLUTE AUTO 9.6 x10^3/uL (1.8-7.7); PLATELET COUNT,PLT 189 x10^3/uL (130-400); RED BLOOD CELL COUNT 3.96 x10^6/uL (4.5-6.0); WHITE BLOOD CELL COUNT,WBC 11.1 x10^3/uL (4.0-10.0)
[2023-10-20 07:00] LABS: A/G RATIO 0.66; ALBUMIN 2.9 g/dL (3.4-5.0); ANION GAP 18.2 mmol/L (5-15); CALCIUM 8.8 mg/dL (8.5-10.1); CREATININE 2.2 mg/dL (0.70-1.30); EST CRCL DRUG DOSING (CG) 26.99 mL/min; POTASSIUM,K 4.2 mmol/L (3.5-5.1); PROTEIN TOTAL,TP 7.3 g/dL (6.4-8.2); VANCOMYCIN RANDOM 19.2 ug/mL (5.0-10.0)
[2023-10-20] MEDS ORDERED: methylPREDNISolone Sodium Succinate 40 MG/1 ML SDV IVPUSH SCH (09:00)
[2023-10-20 09:12] LABS: BASE EXCESS ARTERIAL,POC -2 mmol/L ((-2)-3); HCO3 ARTERIAL,POC 22.7 mmol/L (21-28); O2 SATURATION ARTERIAL,POC 92.5 % (94-98); PCO2 ARTERIAL,POC 36 mmHg (35-48); PH ARTERIAL,POC 7.41 pH (7.35-7.45); PO2 ARTERIAL,POC 64 mmHg (83-108); TCO2 ARTERIAL,POC 22.3 mmol/L (22-29)
[2023-10-20] MEDS: amLODIPine 5 MG Tab PO SCH (09:42)
[2023-10-20] MEDS: Aspirin 81 MG Tab.EC PO SCH (09:43)
[2023-10-20] MEDS: Venlafaxine 75 MG Cap.ER PO SCH (09:43)
[2023-10-20] MEDS: Isosorbide Mononitrate 30 MG Tab.ER PO SCH (09:43)
[2023-10-20] MEDS: Losartan 50 MG Tab PO SCH (09:43)
[2023-10-20] MEDS: Tamsulosin 0.4 MG Cap.ER PO SCH (09:43)
[2023-10-20] MEDS: Venlafaxine 150 MG Cap.ER PO SCH (09:43)
[2023-10-20] MEDS: Gabapentin 300 MG Cap PO SCH (09:43)
[2023-10-20] MEDS: methylPREDNISolone Sodium Succinate 40 MG/1 ML SDV IVPUSH SCH (09:48)
[2023-10-21 06:53] LABS: BASOPHILS PERCENT AUTO 0.1 % (0.2-1.2); HEMATOCRIT 33.1 % (40.0-52.0); HEMOGLOBIN 11.1 g/dL (14.0-18.0); IMMATURE GRAN ABSOLUTE AUTO 0.02 x10^3/uL (0.00-0.07); LYMPHOCYTES ABSOLUTE AUTO 0.9 x10^3/uL (1.0-4.8); LYMPHOCYTES PERCENT AUTO 6.3 % (25.0-50.0); MEAN CORPUSCULAR HEMOGLOBIN 30.7 pg (26.0-32.0); MEAN CORPUSCULAR HGB CONC 33.5 g/dL (32.0-36.0); MEAN CORPUSCULAR VOLUME 91.4 fL (78.0-93.0); MONOCYTES ABSOLUTE AUTO 0.5 x10^3/uL (0.0-0.8); MONOCYTES PERCENT AUTO 3.6 % (2.0-11.0); NEUTROPHILS ABSOLUTE AUTO 12.8 x10^3/uL (1.8-7.7); NEUTROPHILS PERCENT AUTO 89.9 % (50.0-80.0); PLATELET COUNT,PLT 208 x10^3/uL (130-400); RED BLOOD CELL COUNT 3.62 x10^6/uL (4.5-6.0); WHITE BLOOD CELL COUNT,WBC 14.3 x10^3/uL (4.0-10.0)
[2023-10-21 07:19] LABS: C-REACTIVE PROTEIN 6.07 mg/dL (<=0.50)
[2023-10-21 07:22] LABS: A/G RATIO 0.67; ALBUMIN 2.8 g/dL (3.4-5.0); ANION GAP 14.8 mmol/L (5-15); BILIRUBIN TOTAL 0.7 mg/dL (0.2-1.0); CALCIUM 8.6 mg/dL (8.5-10.1); EST CRCL DRUG DOSING (CG) 29.68 mL/min; POTASSIUM,K 3.8 mmol/L (3.5-5.1)
[2023-10-21] MEDS: Furosemide 40 MG Tab PO SCH (08:35)
[2023-10-22 07:45] LABS: BASOPHILS PERCENT AUTO 0.1 % (0.2-1.2); HEMATOCRIT 32.9 % (40.0-52.0); HEMOGLOBIN 10.8 g/dL (14.0-18.0); IMMATURE GRAN ABSOLUTE AUTO 0.04 x10^3/uL (0.00-0.07); LYMPHOCYTES ABSOLUTE AUTO 1.7 x10^3/uL (1.0-4.8); LYMPHOCYTES PERCENT AUTO 15.1 % (25.0-50.0); MEAN CORPUSCULAR HEMOGLOBIN 30.6 pg (26.0-32.0); MEAN CORPUSCULAR HGB CONC 32.8 g/dL (32.0-36.0); MEAN CORPUSCULAR VOLUME 93.2 fL (78.0-93.0); MONOCYTES ABSOLUTE AUTO 0.8 x10^3/uL (0.0-0.8); NEUTROPHILS ABSOLUTE AUTO 8.6 x10^3/uL (1.8-7.7); NEUTROPHILS PERCENT AUTO 77.4 % (50.0-80.0); PLATELET COUNT,PLT 197 x10^3/uL (130-400); RED BLOOD CELL COUNT 3.53 x10^6/uL (4.5-6.0); WHITE BLOOD CELL COUNT,WBC 11.1 x10^3/uL (4.0-10.0)
[2023-10-22 08:15] LABS: A/G RATIO 0.68; ALBUMIN 2.7 g/dL (3.4-5.0); BILIRUBIN TOTAL 0.7 mg/dL (0.2-1.0); CALCIUM 8.7 mg/dL (8.5-10.1); CREATININE 2.1 mg/dL (0.70-1.30); EST CRCL DRUG DOSING (CG) 28.27 mL/min; PROTEIN TOTAL,TP 6.7 g/dL (6.4-8.2)
[2023-10-22] MEDS: predniSONE 20 MG Tab PO SCH (09:56)
[2023-10-22] MEDS: Levofloxacin 500 MG Tab PO ONE (10:03)
[2023-10-22] MEDS: Carvedilol 12.5 MG Tab PO SCH (18:27)
[2023-10-23 07:35] LABS: BASOPHILS PERCENT AUTO 0.1 % (0.2-1.2); EOSINOPHILS PERCENT AUTO 0.1 % (0.0-4.0); HEMATOCRIT 34.8 % (40.0-52.0); HEMOGLOBIN 11.4 g/dL (14.0-18.0); IMMATURE GRAN ABSOLUTE AUTO 0.12 x10^3/uL (0.00-0.07); LYMPHOCYTES PERCENT AUTO 9.8 % (25.0-50.0); MEAN CORPUSCULAR HEMOGLOBIN 30.5 pg (26.0-32.0); MEAN CORPUSCULAR HGB CONC 32.8 g/dL (32.0-36.0); MONOCYTES ABSOLUTE AUTO 0.7 x10^3/uL (0.0-0.8); MONOCYTES PERCENT AUTO 6.6 % (2.0-11.0); NEUTROPHILS ABSOLUTE AUTO 8.4 x10^3/uL (1.8-7.7); NEUTROPHILS PERCENT AUTO 82.2 % (50.0-80.0); PLATELET COUNT,PLT 210 x10^3/uL (130-400); RED BLOOD CELL COUNT 3.74 x10^6/uL (4.5-6.0); WHITE BLOOD CELL COUNT,WBC 10.2 x10^3/uL (4.0-10.0)
[2023-10-23 07:56] LABS: A/G RATIO 0.64; ALBUMIN 2.7 g/dL (3.4-5.0); BILIRUBIN TOTAL 0.6 mg/dL (0.2-1.0); EST CRCL DRUG DOSING (CG) 29.68 mL/min; POTASSIUM,K 4.2 mmol/L (3.5-5.1); PROTEIN TOTAL,TP 6.9 g/dL (6.4-8.2)
[2023-10-23 07:57] LABS: ANION GAP 12.2 mmol/L (5-15)
[2023-10-23] MEDS: Levofloxacin 250 MG Tab PO SCH (08:30)
[2023-10-23 10:07] VITALS: BP 136/69; PULSE 55
[2023-10-23] MEDS: Take Home: Levofloxacin 500 MG Tab, 1 Tab Pack PO ONE (11:19)
== END 2023-10-23 12:05 | disposition home or self-care (01) | DRG 871 ==
LOC: VM.ED 12:52 → VM.MS 15:01
PROVIDERS: ADMIT Family Medicine; ATTEND Family Medicine
PROC: 5A09357 Assistance with Respiratory Ventilation, Less than 24 Consecutive Hours, Continuous Positive Airway Pressure (ICD-10-PCS; principal; 2023-10-19)
PROC: 3E03329 Introduction of Other Anti-infective into Peripheral Vein, Percutaneous Approach (ICD-10-PCS; 2023-10-19)
PROC: 4A133R1 Monitoring of Arterial Saturation, Peripheral, Percutaneous Approach (ICD-10-PCS; 2023-10-19)
DX: A41.9 Sepsis, unspecified organism (principal); I21.A1 Myocardial infarction type 2; J96.90 Respiratory failure, unspecified, unspecified whether with hypoxia or hypercapnia; J18.9 Pneumonia, unspecified organism; I50.9 Heart failure, unspecified; I10 Essential (primary) hypertension; J45.909 Unspecified asthma, uncomplicated; J96.01 Acute respiratory failure with hypoxia; J96.02 Acute respiratory failure with hypercapnia; I50.43 Acute on chronic combined systolic (congestive) and diastolic (congestive) heart failure; J69.0 Pneumonitis due to inhalation of food and vomit; I13.0 Hypertensive heart and chronic kidney disease with heart failure and stage 1 through stage 4 chronic kidney disease, or unspecified chronic kidney disease; Z68.28 Body mass index [BMI] 28.0-28.9, adult; I42.0 Dilated cardiomyopathy; E87.20 Acidosis, unspecified; J44.1 Chronic obstructive pulmonary disease with (acute) exacerbation; J44.0 Chronic obstructive pulmonary disease with (acute) lower respiratory infection; N39.0 Urinary tract infection, site not specified; Z66 Do not resuscitate; J43.9 Emphysema, unspecified; I25.10 Atherosclerotic heart disease of native coronary artery without angina pectoris; E66.9 Obesity, unspecified; F32.A Depression, unspecified; I48.0 Paroxysmal atrial fibrillation; G62.9 Polyneuropathy, unspecified; E78.00 Pure hypercholesterolemia, unspecified; K59.09 Other constipation; N18.32 Chronic kidney disease, stage 3b; M19.90 Unspecified osteoarthritis, unspecified site; Z98.49 Cataract extraction status, unspecified eye; Z98.52 Vasectomy status; Z98.890 Other specified postprocedural states; Z88.8 Allergy status to other drugs, medicaments and biological substances; Z79.01 Long term (current) use of anticoagulants; Z79.82 Long term (current) use of aspirin; Z79.899 Other long term (current) drug therapy
CPT/HCPCS: 0241U; 36415; 36600; 71045; 80053; 80202; 81001; 82803; 83605; 83880; 84484; 85025; 85379; 86140; 87040; 87086; 87088; 87186; 92610-GN; 93005; 93010; 94640; 94660; 94760; 96365; 96375; 97161-GP; 99232; 99238; 99284; 99285-25; A9270-GY; J1940; J2543; J2919; J2920; J3370; J3490; J7030; J7050; J7512; J7613-GY; J7620-GY